=== PATIENT | male | born 1965 | race Caucasian/White ===

== ENCOUNTER → 2019-12-17 09:56 | Outpatient (CLI) | payer BC, SELFPAY ==
[2019-12-17 10:41] LABS: Hemoglobin A1C 5.9 % (0.0-7.0)
[2019-12-17 13:46] LABS: Alanine Aminotransferase 22 U/L (12-78); Albumin Level 3.6 gm/dL (3.4-5.0); Alkaline Phosphatase 78 U/L (46-116); Anion Gap 11.8 mEq/L (5-15); Aspartate Amino Transferase 14 U/L (15-37); Bilirubin,Total 0.4 mg/dL (0.2-1.0); Blood Urea Nitrogen 15 mg/dL (7-18); Carbon Dioxide 29 mmol/L (21.0-32.0); Chloride 101 mmol/L (98-107); Chol/HDL Ratio 4.3 (1-3.5); Cholesterol 142 mg/dL (140-200); Creatinine,Serum 0.89 mg/dL (0.70-1.30); Estimated Glomerular Filt Rate 89 ml/min (>60); GFR (African American) 108 ML/MIN (>60); Globulin 3.6 gm/dl (1.3-3.2); Glucose 84 mg/dL (74-106); HDL Cholesterol 33 mg/dL (27-67); LDL Cholesterol 95 mg/dL (0-130); Potassium 3.8 mmoL/L (3.5-5.1); Sodium 138 mmol/L (136-145); Thyroid Stimulating Hormone 5.12 uIU/ml (0.358-3.740); Total Protein,Serum 7.2 gm/dL (6.4-8.2); Triglycerides 72 mg/dL (30-200); VLDL Cholesterol 14 mg/dL (0-40)
== END ==
PROVIDERS: Visit Provider Family Medicine
DX: R73.01 Impaired fasting glucose (principal); E78.5 Hyperlipidemia, unspecified; R53.83 Other fatigue
CPT/HCPCS: 36415; 80053; 80061; 83036; 84443

== ENCOUNTER → 2020-03-17 15:08 | Outpatient (CLI) | payer BC, SELFPAY ==
[2020-03-18 08:22] LABS: Covid-19 Nasal PCR Sendout Lex NOT DETECTED
== END ==
PROVIDERS: Visit Provider Family Medicine
DX: Z03.818 Encounter for observation for suspected exposure to other biological agents ruled out (principal)
CPT/HCPCS: U0003

== ENCOUNTER → 2020-03-22 15:22 | Outpatient (CLI) | payer BC, SELFPAY ==
--- NOTE | 2020-03-22 15:35 | ECG_ITS ---
APPROVED REPORT Exam: Resting ECG HR:91 bpm ECG Measurements Heart Rate 91 AXES TN 178 P 64 QRSd 94 QRS 96 QT 336 T 50 QTc 413 <Conclusion> Sinus rhythm with premature ventricular beats Rightward axis Borderline ECG Electronically signed by : Michael Elliott, 03/26/2020 17:35:09
== END ==
PROVIDERS: PCP Family Medicine; Visit Provider Family Medicine
DX: R94.31 Abnormal electrocardiogram [ECG] [EKG] (principal)
CPT/HCPCS: 93005

== ENCOUNTER → 2020-03-27 10:42 | Outpatient (CLI) | payer BC, SELFPAY ==
[2020-03-27 13:28] LABS: Adenovirus F 40/41, stool Not Detected (NotDetected); Astrovirus Not Detected (NotDetected); Campylobacter Not Detected (NotDetected); Cryptosporidium Not Detected (NotDetected); Cyclospora Cayetanesis Not Detected (NotDetected); Entamoeba histolytica Not Detected (NotDetected); Enteroaggregative E coli Not Detected (NotDetected); Enteropathogenic E coli Not Detected (NotDetected); Enterotoxigenic E coli Not Detected (NotDetected); Giardia lamblia Not Detected (NotDetected); Norovirus Not Detected (NotDetected); Plesimonas Shigalloides, PCR Not Detected (NotDetected); Rotavirus A Not Detected (NotDetected); Salmonella, PCR Not Detected (NotDetected); Sapovirus Not Detected (NotDetected); Shiga-like toxin E coli Not Detected (NotDetected); Shigella Enterovasive E coli Not Detected (NotDetected); Vibrio Cholerae Not Detected (NotDetected); Vibrio, PCR Not Detected (NotDetected); Yersinia Entercolitica, PCR Not Detected (NotDetected)
[2020-03-27 18:40] LABS: Clostridium Difficile A/B, PCR Detected (NotDetected)
[2020-03-28 08:48] LABS: Covid-19 Nasal PCR Sendout Lex NOT DETECTED
--- NOTE | 2020-03-28 09:29 | PC.NURSE ---
notified pt and Dr. Dial of negative COVID 19 results.
== END ==
PROVIDERS: Visit Provider Family Medicine
DX: R19.7 Diarrhea, unspecified (principal); A04.72 Enterocolitis due to Clostridium difficile, not specified as recurrent; R93.89 Abnormal findings on diagnostic imaging of other specified body structures; J20.9 Acute bronchitis, unspecified; Z03.818 Encounter for observation for suspected exposure to other biological agents ruled out
CPT/HCPCS: 87507; U0003

== ENCOUNTER → 2020-04-21 14:37 | Outpatient (CLI) | payer BC, SELFPAY ==
--- NOTE | 2020-04-21 14:42 | XR_ITS ---
PROCEDURE: XR CHEST 2V CLINICAL HISTORY: ABN CXR Former smoker, follow-up abnormal chest x-ray COMPARISON: XR CHEST PORTABLE from 03/05/2020 FINDINGS: The cardiomediastinal silhouette and pulmonary vascularity are within normal limits. The lungs are clear without infiltrates, suspicious nodules, or pleural effusions. Previously noted nodular opacity in the left upper lobe is less apparent and may have been due to an overlying vessel. Calcified granuloma is present in the right middle lobe with degenerative changes are present in the thoracic spine IMPRESSION: No acute findings. Dictated by: Cassius Goldberg MD 04/21/2020 15:37 Electronically signed by Cassius Goldberg MD in [place] 04/21/2020 15:37
== END ==
PROVIDERS: PCP Family Medicine; Visit Provider Family Medicine
DX: R93.89 Abnormal findings on diagnostic imaging of other specified body structures (principal)
CPT/HCPCS: 71046

== ENCOUNTER → 2021-01-13 10:21 | Outpatient (CLI) | payer BC, SELFPAY ==
--- NOTE | 2021-01-13 10:29 | XR_ITS ---
PROCEDURE: XR CHEST PORTABLE Referring Doctor: Bishop Sherman Patient Age:55Y CLINICAL HISTORY: COVID OUTPATIENT COMPARISON: No exams were available for comparison FINDINGS: AP portable chest-two AP portable chest images submitted today Lungs are well expanded and appear stable, clear with no significant change since March 2020 . . Heart upper normal sized heart with pulmonary vascularity a, a within normal limits. The fernando and mediastinal structures stable in satisfactory. Stable small calcified granuloma right lung base 8.5 mm size. Otherwise lungs are clear wit with no definitive infiltrates,, no suspicious nodules, o nor pleural effusions. But no pneumothorax No acute bony abnormalities. IMPRESSION: No acute findings. Dictated by: Chris Monge MD 01/13/2021 16:06 Chris Monge MD in [place] 01/13/2021 16:06
[2021-01-13 10:46] LABS: Basophils % 0.4 % (0.1-2.0); Eosinophils # 0.4 K/mm3 (0.0-0.4); Eosinophils % 4.9 % (0.1-12.0); Hematocrit 39.7 % (42.0-52.0); Hemoglobin 13.2 g/dL (14.1-18.0); Lymphocytes # 2.8 K/mm3 (0.7-4.5); Lymphocytes % 32.2 % (10-50); Mean Corpuscular HGB Conc 33.2 g/dL (31.8-35.4); Mean Corpuscular Volume 121.1 fl (80-94); Mean Platelet Volume 7.9 fl (7.4-10.4); Monocytes # 0.5 K/mm3 (0.1-1.0); Monocytes % 6.1 % (1.7-9.3); Neutrophils % 56.5 % (37.0-80.0); Platelet Count 317 K/mm3 (142-424); Red Blood Count 3.28 M/mm3 (4.60-6.20); Red Cell Distribution Width 16.7 % (11.5-17.5); White Blood Count 8.8 K/mm3 (4.8-10.8)
[2021-01-13 10:49] LABS: Mean Corpuscular Hemoglobin 40.1 pg (27.0-31.2)
== END ==
PROVIDERS: PCP Family Medicine; Visit Provider Family Medicine
DX: Z20.822 Contact with and (suspected) exposure to COVID-19 (principal)
CPT/HCPCS: 71045; 85025; U0003

== ENCOUNTER 2021-10-09 17:42 | Emergency (ER) | payer OTHER, SELFPAY ==
[2021-10-09 17:42] VITALS: BP 141/90; PULSE 79; RESP 16; TEMP 37; O2SAT 98; BMI 35.1
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
[2021-10-09 20:05] VITALS: BP 141/90; PULSE 79; RESP 16; TEMP 37; O2SAT 98
== END 2021-10-09 20:07 | disposition home or self-care (01) ==
PROVIDERS: Emergency Provider Nurse Practitioner; PCP Family Medicine
DX: T20.10XA Burn of first degree of head, face, and neck, unspecified site, initial encounter (principal); X08.8XXA Exposure to other specified smoke, fire and flames, initial encounter; Y92.69 Other specified industrial and construction area as the place of occurrence of the external cause; Y99.0 Civilian activity done for income or pay
CPT/HCPCS: 99202; G0463

== ENCOUNTER → 2022-01-14 15:09 | Outpatient (CLI) | payer OTHER, SELFPAY ==
[2022-01-14 15:45] LABS: Adenovirus,PCR Not Detected (NotDetected); Bordetella Pertussis Not Detected (NotDetected); Chlamydophila Pneumoniae, PCR Not Detected (NotDetected); Coronavirus 19, PCR Not Detected (NotDetected); Coronavirus 229E Not Detected (NotDetected); Coronavirus NL63 Not Detected (NotDetected); Coronavirus OC43 Not Detected (NotDetected); Coronovirus HKU1,PCR Not Detected (NotDetected); Human Metapneumovirus Not Detected (NotDetected); Influenza A, PCR Not Detected (NotDetected); Influenza AH1, 2009 Not Detected (NotDetected); Influenza AH1, PCR Not Detected (NotDetected); Influenza AH3,PCR Not Detected (NotDetected); Influenza B, PCR Not Detected (NotDetected); Mycoplasma Pneumoniae, PCR Not Detected (NotDetected); Parainfluenza 1, PCR Not Detected (NotDetected); Parainfluenza 2, PCR Not Detected (NotDetected); Parainfluenza 3, PCR Not Detected (NotDetected); Parainfluenza 4, PCR Not Detected (NotDetected); Respiratory Syncytial Virus Not Detected (NotDetected); Rhinovirus/Enterovirus Not Detected (NotDetected)
[2022-01-14 16:09] LABS: Basophils # 0.2 K/mm3 (0-0.2); Basophils % 1.4 % (0.1-2.0); Eosinophils # 0.5 K/mm3 (0.0-0.4); Eosinophils % 4.1 % (0.1-12.0); Hemoglobin 15.5 g/dL (14.1-18.0); Lymphocytes # 2.4 K/mm3 (0.7-4.5); Mean Corpuscular HGB Conc 31.6 g/dL (31.8-35.4); Mean Corpuscular Hemoglobin 31.7 pg (27.0-31.2); Mean Corpuscular Volume 100.3 fl (80-94); Mean Platelet Volume 8.9 fl (7.4-10.4); Monocytes # 0.7 K/mm3 (0.1-1.0); Monocytes % 6.1 % (1.7-9.3); Neutrophils # 8.3 K/mm3 (1.8-7.8); Neutrophils % 68.3 % (37.0-80.0); Platelet Count 319 K/mm3 (142-424); Red Blood Count 4.89 M/mm3 (4.60-6.20); Red Cell Distribution Width 14.1 % (11.5-17.5); White Blood Count 12.1 K/mm3 (4.8-10.8)
== END ==
PROVIDERS: PCP Family Medicine; Visit Provider Family Medicine
DX: Z20.822 Contact with and (suspected) exposure to COVID-19 (principal)
CPT/HCPCS: 36415; 85025; 87581; 87632; 87798; C9803; U0003; U0005

== ENCOUNTER → 2022-01-16 10:52 | Outpatient (CLI) | payer OTHER, SELFPAY ==
[2022-01-16 11:24] LABS: Blood Urea Nitrogen 14 mg/dl (9-20); Estimated Glomerular Filt Rate 88 ml/min (>60); GFR (African American) 106 ML/MIN (>60)
--- NOTE | 2022-01-16 12:58 | CT_ITS ---
FINAL REPORT CLINICAL HISTORY: ABD PAIN, left sided abdomen pain since friday COMPARISON: January 31, 2017 FINDINGS: Technique: The patient was injected with intravenous contrast. Oral contrast was administered. Axial images through the abdomen and pelvis were performed. Abdomen: The lung bases are clear. The liver is normal in size and attenuation. The gallbladder is surgically absent. The spleen is unremarkable. The adrenals are normal. The pancreas is unremarkable. The kidneys enhance appropriately. The aorta is normal in caliber. There is no free fluid or adenopathy. Pelvis: The appendix is not identified. There is descending and sigmoid diverticulosis. There are inflammatory changes adjacent to the distal descending colon consistent with to diverticulitis. The urinary bladder is unremarkable. There is no free fluid or adenopathy. IMPRESSION: Acute diverticulitis of the descending colon. Post cholecystectomy. Reviewed, Interpreted and Dictated by Cheikh Crow III, MD Transcribed by Danni Molina Authenticated by Cheikh Crow III, MD on 01/16/2022 02:36:27 PM [facility]
== END ==
LOC: RAD 10:58
PROVIDERS: PCP Family Medicine; Visit Provider Nurse Practitioner Family
DX: R10.9 Unspecified abdominal pain (principal)
CPT/HCPCS: 36415; 74178; 82565; 84520; Q9967

== ENCOUNTER → 2022-07-02 10:45 | Outpatient (CLI) | payer OTHER, SELFPAY ==
--- NOTE | 2022-07-02 10:59 | XR_ITS ---
FINAL REPORT CLINICAL HISTORY: RIGHT KNEE PAIN FINDINGS: RIGHT KNEE Three views of the right knee reveal no evidence of fracture or dislocation. The bony alignment is normal. There is mild degenerative change. There is no evidence of joint effusion. No localized soft tissue abnormality is identified. IMPRESSION: Mild degenerative change with no acute abnormality identified. Reviewed, Interpreted and Dictated by Cheikh Crow III, MD Transcribed by Danni Molina Authenticated and [facility]
== END ==
PROVIDERS: PCP Family Medicine; Visit Provider Nurse Practitioner Family
DX: M25.561 Pain in right knee (principal)
CPT/HCPCS: 73562

== ENCOUNTER → 2022-07-09 07:55 | Outpatient (CLI) | payer OTHER, SELFPAY ==
--- NOTE | 2022-07-09 07:57 | MR_ITS ---
FINAL REPORT CLINICAL HISTORY: KNEE PAIN. twisted knee 1 week ago. medial sided knee pain. swelling in knee. FINDINGS: Multiplanar MR imaging of the right knee was performed without contrast. There is medial meniscal degeneration with a tear of the body. The lateral meniscus is intact. The anterior and posterior cruciate ligaments are intact. The medial collateral ligament and lateral ligamentous complex are intact. There are foci of patellar tendinitis. There is a small intrasubstance tear of the distal quadriceps tendon. There is no evidence of fracture. There is mild medial compartment degenerative change with mild chondromalacia. Small joint effusion is seen. The musculature is intact. No soft tissue mass or cyst is identified. IMPRESSION: Tear of the body of the medial meniscus. Small intrasubstance tear of the distal quadriceps tendon. Degenerative change and chondromalacia. Reviewed, Interpreted and Dictated by Cheikh Crow III, MD Transcribed by Marylin Sarah Authenticated and [facility]
== END ==
PROVIDERS: PCP Family Medicine; Visit Provider Nurse Practitioner Family
DX: M25.561 Pain in right knee (principal)
CPT/HCPCS: 73721

== ENCOUNTER 2022-09-03 09:00 | Outpatient (RCR) | payer OTHER, SELFPAY ==
--- NOTE | 2022-07-30 09:42 | HMH.PTOPEV ---
PT Outpatient Evaluation Rehab PT Outpatient Evaluation Start: 07/30/22 09:09 Freq: Status: Active Protocol: Document 07/30/22 09:09 CARRILLO (Rec: 07/30/22 09:21 CARRILLO [id number]) E-signed By Chintan Handy, PT Outpatient Therapy Subjective History Subjective History Pt reports injury to right knee ~1 month ago, caused by stepping into hole then twisting right knee. Pt reports recent MRI has revealed a mensicus tear in the right knee. Pt reports severe right knee pain since injury, as well as swelling, and weakness. Pt also reports right anterior thigh pain from hip to knee (quad strain). Chief Complaint Pain,Stiff,Swelling Symptom Type Ache,Sharp,Dull Symptoms Relieved By Rest/Positioning,Ice, Prescription Meds Symptoms Aggravated By Standing,Physical Activity, Walking Prior Functional Limitations None Current Functional Limitations Housework,Standing,Squatting, Walking,Stairs Symptom Description Constant but Variable Level of pain today (0-10) 6 Pain scale - at its best (0-10) 6 Pain scale - at its worst (0-10) 9 Hip/Knee Eval Gait Observation General Gait Pattern Observation Antalgic Gait,Wide Based Gait Assistive Device Assistive Devices None / NA Palpation Tenderness right Knee Palpation Finding Tenderness Knee Palpation Overall Comment 3/4 medial jt line, medial popiteal, 1/4 lateral jt line, 3/4 rectus femori MMT Hip Flexion Strength Grade 4- Good- Hip Abduction Strength Grade 4- Good- Hip Adduction Strength Grade 4- Good- Hip Extension Strength Grade 4- Good- Hip External Rotation Strength Grade 4 Good Hip Internal Rotation Strength Grade 4- Good- Knee Extension Strength Grade 4- Good- Knee Flexion Strength Grade 4- Good- ROM Knee Flexion Active Range of Motion ( 5-124 degrees) Effusion joint effusion knee exam standard right Mid - Patellar Circumerential Measure ( 42 cm) Special Tests Knee Valgus Stress Test Positive Right Knee Varus Stress Test Negative Right Knee Dagoberto Test Positive Right Outpatient Therapy Assessment Impairments Problems/Impairmments Palpation Tenderness,Impaired Range of Motion,Impaired
--- NOTE | 2022-08-29 08:26 | HMH.RHREAS ---
Rehab Reassessment Rehab OP Re-assessment Start: 08/29/22 08:05 Freq: Status: Active Protocol: Document 08/29/22 08:08 CARIRLLO (Rec: 08/29/22 08:25 CARRILLO [id number]) E-signed By Chintan Handy, PT Rehab Re-assessment Subjective Subjective Pt reports right knee exacerbation over the last ~4- 5days w/increased anterior and medial aspect right knee pain @5-8/10 depending on activity . Objective Objective Notes AROM: RIGHT KNEE 3-125 W/PAIN AT END ROM MMT: R HIP ER 4-/5 D/T PAIN, R QUAD 4-/5 D/T PAIN, R HIP ADD 4-/5 W/PAIN TTP: R QUAD TENDON 2-3/4, R MEDIAL (KNEE) JT LINE 3/4 GAIT: ANTALGIC W/DECREASED WT. BEARING ON R LE Assessment Progress Assessment Slower Than Expected Assessment Notes DEPSITE COMPLIANCE W/SKILLED P .T. PT UNABLE TO MAKE PROGRESS W/OBJECTIVE MEASURES Patient goals met STG'S 03/09 Goals Not Met STG'S 04/08, LTG'S 11/11 Plan Plan Pt to continue w/skilled P.T. to make further improvements in AROM, STRENGTH, AND TTP to allow for optimal function Frequency of Therapy 1-2x/wk Duration of therapy 3-4wks Time and Billing Re-Eval Time 12 Re-Eval Billing Units 1 PHYSICIAN CERTIFICATION: I certify the specified therapy services for Cassius Leo are required, authorized, and reviewed every 30 days.
== END 2022-09-03 09:05 | disposition home or self-care (01) ==
LOC: PT 09:00
PROVIDERS: Visit Provider Orthopaedic Surgery
DX: M25.561 Pain in right knee (principal)
CPT/HCPCS: 97010; 97014; 97016; 97035; 97110; 97140; 97163; 97164; G0283

== ENCOUNTER → 2022-09-05 10:59 | Outpatient (CLI) | payer OTHER, SELFPAY ==
[2022-09-05 11:04] LABS: Microscopic, Urine URINE MICROSCOPIC (MICROSCOPIC)
[2022-09-05 11:46] LABS: Basophils # 0.1 K/mm3 (0-0.2); Basophils % 1.5 % (0.1-2.0); Eosinophils # 0.3 K/mm3 (0.0-0.4); Eosinophils % 2.8 % (0.1-12.0); Hematocrit 47.9 % (42.0-52.0); Hemoglobin 15.5 g/dL (14.1-18.0); Lymphocytes # 2.5 K/mm3 (0.7-4.5); Lymphocytes % 27.9 % (10-50); Mean Corpuscular HGB Conc 32.4 g/dL (31.8-35.4); Mean Corpuscular Hemoglobin 30.1 pg (27.0-31.2); Mean Corpuscular Volume 92.9 fl (80-94); Mean Platelet Volume 8.6 fl (7.4-10.4); Monocytes # 0.6 K/mm3 (0.1-1.0); Monocytes % 6.3 % (1.7-9.3); Neutrophils # 5.5 K/mm3 (1.8-7.8); Neutrophils % 61.6 % (37.0-80.0); Platelet Count 318 K/mm3 (142-424); Red Blood Count 5.16 M/mm3 (4.60-6.20); Red Cell Distribution Width 13.8 % (11.5-17.5)
[2022-09-05 11:48] LABS: Appearance,Urine CLEAR (Clear); Bilirubin,Urine Negative (Negative); Blood, Urine Negative (Negative); Color,Urine YELLOW (Yellow); Glucose,Urine (UA) Negative (Negative); Ketones,Urine Negative (Negative); Leukocyte Esterase,Urine Negative (Negative); Nitrate,Urine Negative (Negative); Protein,Urine Negative (Negative); Specific Gravity, Urine 1.025 (1.005-1.030)
[2022-09-05 12:01] LABS: Chloride 103 mmol/L (98-107); Sodium 142 mmol/L (136-145)
[2022-09-05 12:02] LABS: Potassium 4.9 mmoL/L (3.5-5.1)
[2022-09-05 12:04] LABS: Alanine Aminotransferase 19 U/L (12-78); Albumin Level 4.4 g/dl (3.5-5.0); Albumin/Globulin Ratio 1.3 (1.1-1.8); Alkaline Phosphatase 118 U/L (38-126); Anion Gap 11.9 mEq/L (5-15); Aspartate Amino Transferase 30 U/L (17-59); Bilirubin,Total 0.4 mg/dl (0.2-1.3); Blood Urea Nitrogen 12 mg/dl (9-20); Calcium 9.4 mg/dl (8.4-10.2); Carbon Dioxide 32 mmol/L (22.0-30.0); Estimated Glomerular Filt Rate 100 ml/min (>60); GFR (African American) 121 ML/MIN (>60); Globulin 3.3 g/dL (1.3-3.2); Glucose 102 mg/dl (74-100); Total Protein,Serum 7.7 g/dl (6.3-8.2)
[2022-09-05 12:12] LABS: Mucus,Urine Trace /lpf; Squamous Epithelial Cell,Urine Occasional #/hpf (0-5); WBC,Urine Occasional #/hpf (0-3)
== END ==
PROVIDERS: PCP Family Medicine; Visit Provider Orthopaedic Surgery
DX: Z01.818 Encounter for other preprocedural examination (principal); S83.241A Other tear of medial meniscus, current injury, right knee, initial encounter
CPT/HCPCS: 36415; 80053; 81001; 85025

== ENCOUNTER → 2022-09-07 09:06 | Outpatient (CLI) | payer OTHER, SELFPAY | PROVIDERS: PCP Family Medicine; Visit Provider Orthopaedic Surgery | DX: Z01.812 Encounter for preprocedural laboratory examination (principal); Z20.822 Contact with and (suspected) exposure to COVID-19; M25.561 Pain in right knee | CPT/HCPCS: C9803; U0003; U0005 ==

== ENCOUNTER 2022-09-10 10:33 | Day surgery (SDC) | payer OTHER, SELFPAY ==
[2022-09-09 09:40] VITALS: BMI 32.9
[2022-09-10] VITALS (12 sets, daily range): BP systolic 123–155; BP diastolic 66–97; PULSE 57–71; RESP 16–17; TEMP 36.1–43; O2SAT 93–100
--- NOTE | 2022-09-10 12:15 | EXP.ANES.CKL ---
[facility] Medical History (Updated 09/10/22 @ 11:17 by Estela Lemons RN) Hypertension Surgical History History of cholecystectomy History of surgery History of surgery History of surgery Family History Other No significant family history Social History Smoking Status: Current every day smoker alcohol intake: never substance use type: denies use current occupational status: employed Travel in the last 8 weeks: None [facility] Anesthesia Checklist Patient Identification Patient Identification: Arm Band Structural Data Admitted From: Home Planned Operative Procedure/s: Right Knee Arthroscopy, Medial Meniscectomy Consent for Planned Operative Procedure(s) Verified: Yes Verified Documents: Surgical Consent and History and Physical NPO Status Verified Time NPO: 00:00 Additional verifications Anesthesia Reactions: No Hx Blood Transfusions: No Blood Transfusion Reaction: No Airway Assessment C-Spine Mobility Assessed: Yes TMJ Mobility Assessed: Yes Dentition: Edentulous Neurological Assessment Level of Consciousness: Awake and Alert Anesthesia Plan Anesthesia Risk discussed: Yes Anesthesia Plan: Verified ASA Class: II Anesthesia Type: General
--- NOTE | 2022-09-10 12:49 | EXP.OP.NOTE ---
Date of procedure: 09/10/22 Pre-op Diagnosis:: Right knee medial meniscus tear Post-op Diagnosis:: Right knee medial meniscus tear Procedure performed:: Right knee arthroscopy with partial medial meniscectomy Surgeon:: Jay Griffith MD Health Education Director(s):: None CONSTRUCTION SUPERINTENDENT:: Baltazar Hart Anesthesia: GETA and local Estimated blood loss (mL): 5 Clinical Note:: Vito is a very pleasant 57-year-old male has been struggling with right knee pain since he slipped in May. An MRI in July revealed complex tear undersurface of the medial meniscus at the junction of the posterior horn and body. A cortisone injection in August only helped for a few days. He did physical therapy as well with minimal relief. 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 Operative findings:: Right knee complex tear with horizontal cleavage component junction of posterior horn and body the medial meniscus. 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 Operative note:: The patient was seen in the preoperative holding area. He received Ancef 2 g IV prophylactic antibiotics within 1 hour of incision time. He was seen by anesthesia. The right knee was marked to confirm the correct operative site. He was brought back to the operating room. General anesthesia was induced without difficulty. The right lower extremity was prepped and draped in the usual sterile fashion. Timeout was performed to confirm right knee arthroscopy on patient Vito Leo. An anterior lateral viewing portal was made with an 11 blade scalpel. Arthroscope was introduced in the knee joint. I then made an anteromedial portal localizing this with a spinal needle and making this incision with an 11 blade as well. This was dilated with a trocar and diagnostic arthroscopy commenced. Evaluation of the medial compartment revealed a complex tear with horizontal cleavage component junction of posterior horn and body of the medial meniscus. There was mild to grade II-III chondromalacia of the medial femoral condyle with no full-thickness cartilage loss. This was debrided with a shaver. A partial medial meniscectomy was then performed using a combination of a 4.0 mm shaver and a straight biter to resect the tear at the junction of the posterior horn and body the medial meniscus. We resected the unstable inferior flap of the horizontal cleavage component tear of the posterior horn as well. We resected approximately inner third to half at the apex of the tear at the junction of the posterior horn and body of the middle meniscus. This was resected back to a smooth stable border with smooth transition to intact body of the medial meniscus. Cruciate ligaments were seen to be intact. Evaluation of the lateral compartment revealed lateral meniscus was intact and minimal chondromalacia. Evaluation of the patellofemoral compartment revealed some diffuse grade II-III chondromalacia of the central aspect of the trochlea. This was debrided with the shaver back to a smooth stable border. Arthroscopy instruments were removed from the the joint. Portals were closed with 4-0 Monocryl subcuticular stitches. I injected 20 cc of half percent Naropin from the superolateral approach for local anesthetic. Sterile dressing was applied with Steri-Strips, 4 x 4's, ABDs, soft roll and an Klaus bandage. Anesthesia was reversed without difficulty and the patient was transferred to recovery in stable condition. All sponge and needle counts correct x2. Postoperative plan: We will prescribe oxycodone to take as needed for pain and aspirin for DVT prophylaxis Okay to weight-bear as tolerated with crutch assist as needed. Ice and elevate the right knee Follow-up in the office next Friday Tourniquet time (min): 0 Condition: stable Disposition: PACU Specimens:: None Complications:: None
--- NOTE | 2022-09-10 12:51 | P.PNANES_ITS ---
[facility] Anesthesia Record Part I Anesthesia Record I Intake, IV Amount: 900 Estimated blood loss (mL): 5 Urine output (mL): 0 Blood Products used (#): none Blood Pressure: 127/66 SaO2: 93 Pulse Rate: 57 Respiratory Rate: 16 Temperature: 97.8 F Patient is:: Drowsy and Stable Stable to PACU at:: 12:50
--- NOTE | 2022-09-10 13:35 | EXP.ANES.II ---
[facility] Anesthesia Record Part II Anesthesia Record Part II Discharge Time: 13:20 Destination: Surgical Day Care (OP Surgery) PACU nurse assessment reviewed?: Yes Patient Condition:: Good Anesthesia Complications:: None Swallowing reflex intact?: Yes Cyanosis?: No Blood Pressure: 142/84 Pulse Rate: 67 Temperature: 97.6 F Mental Status: Alert & Oriented Pain level:: 3 Nausea and/or vomitting:: None Intake, IV Amount: 0
== END 2022-09-10 13:56 | disposition home or self-care (01) ==
PROVIDERS: PCP Family Medicine; Visit Provider Orthopaedic Surgery
PROC: (CPT 29870; principal; 2022-09-10 12:15)
DX: S83.241A Other tear of medial meniscus, current injury, right knee, initial encounter (principal); F17.210 Nicotine dependence, cigarettes, uncomplicated; M17.11 Unilateral primary osteoarthritis, right knee; W11.XXXA Fall on and from ladder, initial encounter; M94.261 Chondromalacia, right knee
CPT/HCPCS: 29881; 29879; 96374; J2405

== ENCOUNTER 2022-11-12 08:00 | Outpatient (RCR) | payer OTHER, SELFPAY ==
--- NOTE | 2022-10-01 08:56 | HMH.PTOPEV ---
PT Outpatient Evaluation Rehab PT Outpatient Evaluation Start: 10/01/22 08:32 Freq: Status: Active Protocol: Document 10/01/22 08:35 ANIVAL (Rec: 10/01/22 08:55 ANIVAL [id number]) E-signed By Adal Hopkins, PT Outpatient Therapy Subjective History Subjective History Patient is a 57 year old male presenting to outpatient PT with reports of R post-sugical knee pain S/P R knee arthroscopy 09/10/22. Patient reports initial injury occurred after a misstep off a ladder approximatley 2 months ago. Most recent imaging indicates tear of the medial meniscus, small tear of the quad tendon and chondromalacia . Comorbidities include hx of HTN, Meiners disease, sheng and distal biceps ORIF. Chief Complaint Pain,Stiff,Swelling,Weakness Symptom Type Ache,Sharp Symptoms Relieved By Rest/Positioning,Ice,OTC Meds Symptoms Aggravated By Standing,Physical Activity, Walking Prior Functional Limitations None Current Functional Limitations Housework,Standing,Squatting, Walking,Balance Symptom Description Constant but Variable Level of pain today (0-10) 4 Pain scale - at its best (0-10) 1 Pain scale - at its worst (0-10) 9 Hip/Knee Eval Gait Observation General Gait Pattern Observation Antalgic Gait,Decrease Weight Bear (R) Assistive Device Assistive Devices None / NA Palpation Tenderness right Knee Palpation Finding Tenderness Knee Palpation Overall Comment medial joint line, pes anserene, quad tendon 3/4 MMT Hip Flexion Strength Grade 4- Good- Hip Abduction Strength Grade 4- Good- Hip Adduction Strength Grade 4- Good- Hip Extension Strength Grade 4- Good- Hip External Rotation Strength Grade 4- Good- Hip Internal Rotation Strength Grade 4- Good- Knee Extension Strength Grade 3+ Fair+ Knee Flexion Strength Grade 4 Good ROM Hip ROM Reason Not Measured Within Functional Limits Knee Extension Active Range of Motion ( -5 degrees) Knee Flexion Active Range of Motion ( 124 degrees) Special Tests Knee Anterior Lincoln Test Negative Right Knee Pivot Shift Test Negative Right Knee Valgus Stress Test Negative Right Knee Varus Stress Test Negative Right Kne
--- NOTE | 2022-10-30 08:28 | HMH.RHREAS ---
Rehab Reassessment Rehab OP Re-assessment Start: 10/30/22 08:09 Freq: Status: Active Protocol: Document 10/30/22 08:09 ANIVAL (Rec: 10/30/22 08:27 ANIVAL [id number]) E-signed By Adal Hopkins, PT Rehab Re-assessment Subjective Subjective Patient reports 65% improvement since start of care. Objective Objective Notes AROM: 0-126 MMT: all WNL except for quad 4 -/5, hip ER/IR 4-/5 Pain: today 02/07; at worst over past week 05/10 Neuro: WNL Special tests: negative Assessment Progress Assessment Progressing as Expected Assessment Notes Patient would benefit from continuing with skilled PT services to address functional deficits with all standing/ ambulatory activities. At this this time the main concern is weakness in above mentioned muscle groups associated with pain. Patient has more difficulty with exercises including medial/lateral stability. Patient goals met STG2 Goals Not Met All others Revised Goals NA Plan Plan Continue with current POC. Frequency of Therapy 2x/week Duration of therapy 4 weeks Time and Billing Re-Eval Time 15 Re-Eval Billing Units 1 PHYSICIAN CERTIFICATION: I certify the specified therapy services for Cassius Leo are required, authorized, and reviewed every 30 days.
== END 2022-11-12 08:05 | disposition home or self-care (01) ==
LOC: PT 08:00
PROVIDERS: Visit Provider Orthopaedic Surgery
DX: M25.561 Pain in right knee (principal); S83.241A Other tear of medial meniscus, current injury, right knee, initial encounter
CPT/HCPCS: 97010; 97014; 97016; 97110; 97163; 97164; G0283

== ENCOUNTER → 2023-03-10 15:49 | Outpatient (CLI) | payer OTHER, SELFPAY ==
--- NOTE | 2023-03-10 15:58 | XR_ITS ---
FINAL REPORT CLINICAL HISTORY: Rt flank pain for 2-3 weeks, hx of gallbladder surg 9+ years ago FINDINGS: A single view of the abdomen was obtained. There is a nonobstructive bowel gas pattern. There are no abnormally dilated loops of small bowel. There is a moderate amount of retained stool. There are postoperative changes in the right upper quadrant. IMPRESSION: 1. Nonobstructive bowel gas pattern. 2. Moderate amount of retained stool. Reviewed, Interpreted and Dictated by Cheikh Crow III, MD Transcribed by Danni Molina Authenticated and [facility]
== END ==
PROVIDERS: PCP Family Medicine; Visit Provider Family Medicine
DX: R10.9 Unspecified abdominal pain (principal)
CPT/HCPCS: 74018

== ENCOUNTER 2023-04-20 18:01 | Emergency (ER) | payer SELFPAY ==
[2023-04-20 18:02] VITALS: BP 160/96; PULSE 66; RESP 18; TEMP 36.7; O2SAT 98; BMI 34.0
--- NOTE | 2023-04-20 18:14 | XR_ITS ---
PROCEDURE INFORMATION: Exam: XR Right Knee Exam date and time: 04/20/23 06:11 PM Age: 57 years old Clinical indication: Pain; Knee; Right TECHNIQUE: Imaging protocol: Radiologic exam of the right knee. Views: 3 views. COMPARISON: MR KNEE RT WO CON 07/09/22 08:04 AM FINDINGS: Bones/joints: Normal. Soft tissues: Normal. IMPRESSION: No acute findings.
--- NOTE | 2023-04-20 18:19 | EXP.UTC ---
Discharge Plan Disposition Patient Disposition: Home, Self-Care Condition: Good Prescriptions Prescriptions: No Action meloxicam 15 mg tablet 15 mg PO DAILY Qty: 30 2RF losartan 50 MG tablet 50 mg PO DAILY aspirin 325 mg tablet 325 mg PO DAILY Qty: 14 0RF Rx Instructions: Take w breakfast for 2 weeks starting 09/11 Referrals Follow up/Referrals: Bishop Sherman MD [Primary Care Provider] - See instructions Vadim Walker JR, MD [Physician] - See instructions Activity Restrictions/Add. Instructions Additional Instructions/Restrictions: Rest the extremity, Elevate the extremity as tolerated while you are resting. Follow up with Dr. Walker (orthopedics). I put in a referral but you need to call his office in the morning and schedule an appointment. Follow up with your regular doctor. GO TO THE ER FOR ANY WORSENING SYMPTOMS Clinical Impressions Clinical Impression: Knee pain, right Stand Alone Forms Stand Alone Forms: Work/School Release Instructions Patient Instructions: DI for Knee Pain Discharge ED Provider: Johnny [place] [facility] General Stated complaint: AO 04/20@1715 R knee Time Seen by Provider: 04/20/23 18:19 History of Present Illness Provider Complaint: She c/o worsening right knee pain for the past 3 weeks. Today, he slightly twisted his right knee and his symptoms worsened. Related Data Home Medications Medication Instructions Recorded Confirmed losartan 50 mg tablet 50 mg PO DAILY bp 09/09/22 11/15/22 Previous Rx's Medication Instructions Recorded aspirin 325 mg tablet 325 mg PO DAILY #14 tabs 09/10/22 meloxicam 15 mg tablet 15 mg PO DAILY #30 tabs 10/18/22 Allergies Allergy/AdvReac Type Severity Reaction Status Date / Time morphine [MORPHINE] Allergy Mild DROPS B/P Verified 11/15/22 11:03 [facility] Disclaimer: The information contained in this section may have been updated after the patient was seen, as this information can be updated by other users. Medical History Hypertension Surgical History History of arthroscopy of right knee History of cholecystectomy History of surgery History of surgery History of surgery Family History Other No significant family history Social History Smoking Status: Current every day smoker alcohol intake: never substance use type: denies use current occupational status: employed Travel in the last 8 weeks: None ROS Obtained: Yes All systems reviewed & no additional complaints except as documented Constitutional Constitutional: Denies chills and Denies fever(s) Eyes Eyes: Denies eye discharge ENT Ears, Nose, Mouth, and Throat: Denies dizziness, Denies otalgia and Denies sore throat Cardiovascular Cardiovascular: Denies chest pain Respiratory Respiratory: Denies shortness of breath, Denies chest congestion, Denies cough, Denies stridor and Denies wheezing Gastrointestinal Gastrointestingal: Denies nausea or vomiting Musculoskeletal Musculoskeletal: Reports as per HPI Integumentary/Breasts Skin/Breast: Denies rash Neurologic Neurologic: Denies dizziness and Denies paresthesias Allergic/Immunologic Allergic/Immunologic: Denies wheezing Physical Exam General General appearance: alert and in no apparent distress Head Head exam: atraumatic, normocephalic and normal inspection Eye Eye exam: Present normal appearance, PERRL and EOMI ENT ENT exam: Present normal exam, normal oropharynx, mucous membranes moist, TM's normal bilaterally and normal external ear exam Neck Neck exam: Present normal inspection, full ROM and trachea midline; Absent meningismus or lymphadenopathy Chest Chest inspection: Present normal inspection and symmetric chest wall rise; Absent tenderness Respira
[2023-04-20 19:48] VITALS: BP 160/96; PULSE 66; RESP 18; TEMP 36.7; O2SAT 98
== END 2023-04-20 19:48 | disposition home or self-care (01) ==
PROVIDERS: Emergency Provider Nurse Practitioner Family; PCP Family Medicine
DX: M25.561 Pain in right knee (principal); I10 Essential (primary) hypertension; F17.210 Nicotine dependence, cigarettes, uncomplicated; X50.1XXA Overexertion from prolonged static or awkward postures, initial encounter
CPT/HCPCS: 73562; 96372; 99212; 99214; G0463

== ENCOUNTER → 2023-05-12 07:39 | Outpatient (CLI) | payer BC, SELFPAY ==
--- NOTE | 2023-05-12 07:42 | MR_ITS ---
FINAL REPORT CLINICAL HISTORY: DERANGMENT OF KNEE, RIGHT. medial sided knee pain with swelling. knee instability. no injury or trauma COMPARISON: 07/09/2022 FINDINGS: Multiplanar MR imaging of the right knee was performed without contrast. Interval postoperative changes of partial medial meniscectomy. No convincing medial meniscal tear. Lateral meniscus intact. The anterior and posterior cruciate ligaments are intact. The medial collateral ligament and lateral ligamentous complex are intact. There are foci of patellar tendinitis. No tendon tear seen. There is no evidence of fracture. 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 A small joint effusion is seen. The musculature is intact. No soft tissue mass or cyst is identified. IMPRESSION: Interval postoperative changes of partial medial meniscectomy without convincing medial meniscal tear. Patellar tendinitis. 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 Reviewed, Interpreted and Dictated by Cheikh Crow III, MD Transcribed by Ila Roque Authenticated and [facility]
== END ==
PROVIDERS: PCP Family Medicine; Visit Provider Family Medicine
DX: M23.91 Unspecified internal derangement of right knee (principal)
CPT/HCPCS: 73721

== ENCOUNTER 2023-08-03 09:26 | Emergency (ER) | payer BC, SELFPAY ==
[2023-08-03 09:35] VITALS: BP 143/91; PULSE 74; RESP 20; TEMP 36.8; O2SAT 96; BMI 34.0
--- NOTE | 2023-08-03 09:43 | EXP.UTC ---
Discharge Plan Disposition Patient Disposition: Home, Self-Care Condition: Good Prescriptions Prescriptions: New doxycycline monohydrate 100 mg tablet 100 mg PO BID Qty: 20 0RF prednisone 20 mg tablet 20 mg PO BID Qty: 10 0RF dextromethorphan-guaifenesin [Mucinex DM] 60-1,200 mg tablet extended release 12 hr 1 tab PO BID Qty: 20 0RF No Action meloxicam 15 mg tablet 15 mg PO DAILY Qty: 30 2RF indomethacin 25 mg capsule 25 mg PO Patient Comments: TAKE 1 CAPSULE BY MOUTH THREE TIMES DAILY losartan 50 MG tablet 50 mg PO DAILY aspirin 325 mg tablet 325 mg PO DAILY Qty: 14 0RF Rx Instructions: Take w breakfast for 2 weeks starting 09/11 Referrals Follow up/Referrals: Tavo Dial MD [Primary Care Provider] - See instructions Activity Restrictions/Add. Instructions Additional Instructions/Restrictions: Take all meds as prescribed until gone Follow up with Dr Dial if not improving Clinical Impressions Clinical Impression: Chronic bronchitis with acute exacerbation Instructions Patient Instructions: DI for Chronic Obstructive Pulmonary Disease Discharge ED Provider: Kristine Dominguez [facility] [place] HPI General Stated complaint: congestion Time Seen by Provider: 08/03/23 09:44 History of Present Illness Provider Complaint: Cough and congestion X 5 days. Cough productive of green sputum. He does smoke. Does not use inhalers at home. Had fever the first 3 days. No nausea, vomiting. Took some Robitussin which helped just a little. Onset (ago): day(s) (5) Location: chest Relieving factors: none Exacerbating factors: none Associated symptoms: cough Treatments prior to arrival: other (Robitussin) Related Data Home Medications Medication Instructions Recorded Confirmed losartan 50 mg tablet 50 mg PO DAILY bp 09/09/22 05/16/23 indomethacin 25 mg capsule 25 mg PO 05/07/23 05/16/23 Previous Rx's Medication Instructions Recorded aspirin 325 mg tablet 325 mg PO DAILY #14 tabs 09/10/22 meloxicam 15 mg tablet 15 mg PO DAILY #30 tabs 10/18/22 dextromethorphan-guaifenesin ER 60 1 tab PO BID #20 tabs 08/03/23 mg-1,200 mg tab,extend release,12hr (Mucinex DM) doxycycline monohydrate 100 mg 100 mg PO BID #20 tabs 08/03/23 tablet prednisone 20 mg tablet 20 mg PO BID #10 tabs 08/03/23 Allergies Allergy/AdvReac Type Severity Reaction Status Date / Time morphine [MORPHINE] Allergy Mild DROPS B/P Verified 05/16/23 14:22 [facility] Disclaimer: The information contained in this section may have been updated after the patient was seen, as this information can be updated by other users. Medical History Hypertension Surgical History History of arthroscopy of right knee History of cholecystectomy History of surgery left bicep repair History of surgery pressure released from right ear History of surgery left thumb reparied Family History Other No significant family history Social History Smoking Status: Current every day smoker alcohol intake: never substance use type: denies use current occupational status: employed Travel in the last 8 weeks: None ROS Obtained: Yes All systems reviewed & no additional complaints except as documented Constitutional Constitutional: Denies chills and Denies fever(s) Eyes Eyes: Denies eye discharge ENT Ears, Nose, Mouth, and Throat: Denies dizziness, Denies otalgia and Denies sore throat Cardiovascular Cardiovascular: Denies chest pain Respiratory Respiratory: Denies shortness of breath, Reports chest congestion, Reports cough, Denies stridor and Denies wheezing Gastrointestinal Gastrointestingal: Denies nausea or vomiting Musculoskeletal Musculoskeletal: Reports as
[2023-08-03 09:59] VITALS: BP 143/91; PULSE 74; RESP 20; TEMP 36.8; O2SAT 96
== END 2023-08-03 10:03 | disposition home or self-care (01) ==
PROVIDERS: Emergency Provider Physician Assistant; PCP Family Medicine
DX: J20.9 Acute bronchitis, unspecified (principal); F17.210 Nicotine dependence, cigarettes, uncomplicated; I10 Essential (primary) hypertension
CPT/HCPCS: 99212; 99214; G0463

== ENCOUNTER 2023-08-10 14:11 | Emergency (ER) | payer BC, SELFPAY ==
[2023-08-10] VITALS (8 sets, daily range): BP systolic 125–170; BP diastolic 66–94; PULSE 61–71; RESP 16–19; TEMP 36.5; O2SAT 95–100; BMI 34.0
--- NOTE | 2023-08-10 14:30 | XR_ITS ---
PROCEDURE INFORMATION: Exam: XR Chest Exam date and time: 08/10/2023 2:26 PM Age: 58 years old Clinical indication: Cough TECHNIQUE: Imaging protocol: Radiologic exam of the chest. Views: 2 views. COMPARISON: CR XR CHEST PORTABLE 01/13/2021 10:51 AM FINDINGS: Lungs: Stable interstitial prominence. No focal consolidation. Stable calcified granuloma at the right base. Pleural spaces: Unremarkable. No pleural effusion. No pneumothorax. Heart/Mediastinum: Unremarkable. No cardiomegaly. Bones/joints: Unremarkable. IMPRESSION: No acute findings.
[2023-08-10 14:33] LABS: Coronavirus 19, PCR Not Detected (NotDetected); Influenza A, PCR Not Detected (NotDetected); Influenza B, PCR Not Detected (NotDetected)
--- NOTE | 2023-08-10 14:34 | PC.NURSE ---
PT GOING TO RADIOLOGY
--- NOTE | 2023-08-10 14:38 | PC.NURSE ---
Pt returned from RAD
--- NOTE | 2023-08-10 14:39 | PC.NURSE ---
pt back in room from xray
--- NOTE | 2023-08-10 14:47 | ECG_ITS ---
APPROVED REPORT Exam: Resting ECG HR:66 bpm ECG Measurements Heart Rate 66 AXES WI 194 P 25 QRSd 115 QRS 71 QT 394 T 42 QTc 408 Conclusion ELECTRONIC VENTRICULAR PACEMAKER ABNORMAL RHYTHM ECG UNCONFIRMED REPORT Electronically signed by : Javier Werner MD 08/12/2023 17:18:57
--- NOTE | 2023-08-10 14:49 | PC.NURSE ---
Upon rounding on pt pt was clutching thre right side of his chest and advised his chest feels tight . MD made aware and EKG done
--- NOTE | 2023-08-10 15:43 | PC.NURSE ---
Rounded on patient. No needs at this time.
--- NOTE | 2023-08-10 15:51 | HMH.EDGENADL ---
Discharge Plan Disposition Patient Disposition: Home, Self-Care Prescriptions Prescriptions: New albuterol sulfate 90 mcg/actuation HFA aerosol inhaler 2 inh inhalation Q4H PRN (Reason: shortness of breath or wheezing) Qty: 8.5 0RF fluticasone propionate 220 mcg/actuation HFA aerosol inhaler 1 inh inhalation BID Qty: 12 0RF No Action meloxicam 15 mg tablet 15 mg PO DAILY Qty: 30 2RF indomethacin 25 mg capsule 25 mg PO Patient Comments: TAKE 1 CAPSULE BY MOUTH THREE TIMES DAILY losartan 50 MG tablet 50 mg PO DAILY aspirin 325 mg tablet 325 mg PO DAILY Qty: 14 0RF Rx Instructions: Take w breakfast for 2 weeks starting / doxycycline monohydrate 100 mg tablet 100 mg PO BID Qty: 20 0RF prednisone 20 mg tablet 20 mg PO BID Qty: 10 0RF dextromethorphan-guaifenesin [Mucinex DM] 60-1,200 mg tablet extended release 12 hr 1 tab PO BID Qty: 20 0RF Referrals Follow up/Referrals: Elie Paredes MD [Primary Care Provider] - See instructions Activity Restrictions/Add. Instructions Additional Instructions/Restrictions: Call your family doctor to establish care for this visit to the emergency department and schedule follow-up within 48 hours to ensure improvement. If you have any worsening of your condition or any other concerning signs or symptoms, return to the emergency department or your primary care doctor for further evaluation. Clinical Impressions Clinical Impression: Bronchitis Discharge ED Provider: Bebeto Limon General Adult HPI General Chief complaint: Upper Respiratory Infection Stated complaint: chills,Sore throat,SOB,Congestion Cizzy Time Seen by Provider: 08/10/23 15:00 Mode of Arrival: Ambulatory Source of Information: Patient Limitations: No Limitations Description of Symptoms (Recalled from ER Triage Doc. by RN): pt was seen last week at [facility] here for congestion adn given antibiotics and steroids. today he states he is worse and has a sore throat and denies a fever but has a productive cough and feels like he has chest congesetion now. History of Present Illness HPI narrative: 58-year-old male with history of COPD currently still smoking, hypertension, hyperlipidemia presenting with shortness of breath. Patient has had shortness of breath and cough for approximately 10 days. Had a fever over a week and a half ago, has not had a fever in about 7 days. Cough is nonproductive. Shortness of breath has not been relieved. Chest pain, nausea vomiting, lower extremity swelling, positional changes, abdominal pain, productive cough, or any other concerns. No history or risk factors for DVT/PE. Related Data Home Medications Medication Instructions Recorded Confirmed losartan 50 mg tablet 50 mg PO DAILY bp 09/09/22 05/16/23 indomethacin 25 mg capsule 25 mg PO 05/07/23 05/16/23 Previous Rx's Medication Instructions Recorded aspirin 325 mg tablet 325 mg PO DAILY #14 tabs 09/10/22 meloxicam 15 mg tablet 15 mg PO DAILY #30 tabs 10/18/22 dextromethorphan-guaifenesin ER 60 1 tab PO BID #20 tabs 08/03/23 mg-1,200 mg tab,extend release,12hr (Mucinex DM) doxycycline monohydrate 100 mg 100 mg PO BID #20 tabs 08/03/23 tablet prednisone 20 mg tablet 20 mg PO BID #10 tabs 08/03/23 albuterol sulfate 90 mcg/actuation 2 inh inhalation Q4H PRN shortness 08/10/23 aerosol inhaler of breath or wheezing #8.5 grams fluticasone propionate 220 1 inh inhalation BID #12 grams 08/10/23 mcg/actuation HFA aerosol inhaler Allergies Allergy/AdvReac Type Severity Reaction Status Date / Time morphine [MORPHINE] Allergy Mild DROPS B/P Verified 05/16/23 14:22 [facility] Disclaimer: The information contained in this section may have been updated after the patient was seen, as this information can be updated by other users. Medical History Hypertension Surgical History (Reviewed 05/16/23
--- NOTE | 2023-08-10 16:08 | PC.NURSE ---
Pt ambulatory to bathroom at this time.
[2023-08-10 16:22] LABS: Basophils # 0.1 K/mm3 (0-0.2); Basophils % 0.5 % (0.1-2.0); Eosinophils # 0.2 K/mm3 (0.0-0.4); Eosinophils % 1.6 % (0.1-12.0); Hematocrit 47.4 % (42.0-52.0); Hemoglobin 15.3 g/dL (14.1-18.0); Lymphocytes % 32.2 % (10-50); Mean Corpuscular HGB Conc 32.3 g/dL (31.8-35.4); Mean Corpuscular Hemoglobin 28.9 pg (27.0-31.2); Mean Corpuscular Volume 89.7 fl (80-94); Mean Platelet Volume 8.5 fl (7.4-10.4); Monocytes # 0.7 K/mm3 (0.1-1.0); Monocytes % 7.8 % (1.7-9.3); Neutrophils # 5.4 K/mm3 (1.8-7.8); Neutrophils % 57.9 % (37.0-80.0); Platelet Count 242 K/mm3 (142-424); Red Blood Count 5.29 M/mm3 (4.60-6.20); Red Cell Distribution Width 13.5 % (11.5-17.5); White Blood Count 9.3 K/mm3 (4.8-10.8)
[2023-08-10 16:34] LABS: Alanine Aminotransferase 42 U/L (12-78); Albumin/Globulin Ratio 1.1 (1.1-1.8); Alkaline Phosphatase 91 U/L (38-126); Anion Gap 12.8 mEq/L (5-15); Aspartate Amino Transferase 37 U/L (17-59); Bilirubin,Total 0.4 mg/dl (0.2-1.3); Blood Urea Nitrogen 17 mg/dl (9-20); Calcium 9.2 mg/dl (8.4-10.2); Carbon Dioxide 27 mmol/L (22.0-30.0); Chloride 106 mmol/L (98-107); Creatinine Clearance Estimated 134 mL/min (50-200); Estimated Glomerular Filt Rate 87 ml/min (>60); GFR (African American) 105 ML/MIN (>60); Globulin 3.6 g/dL (1.3-3.2); Glucose 99 mg/dl (74-100); Potassium 3.8 mmoL/L (3.5-5.1); Sodium 142 mmol/L (136-145); Total Protein,Serum 7.6 g/dl (6.3-8.2)
[2023-08-10 16:46] LABS: NT Pro Brain Natriuretic Pep. 21.5 pg/mL (0-125)
[2023-08-10 16:47] LABS: Troponin I < 0.01 ng/ml (0.00-0.034)
--- NOTE | 2023-08-10 16:47 | PC.NURSE ---
rounded on patient, complains of dysphagia Dr. Limon notified.
[2023-08-10 16:51] LABS: Procalcitonin 0.057 ng/mL (0.0-2.0)
--- NOTE | 2023-08-10 17:21 | PC.NURSE ---
Rounded on pt. Advised his throat was very sore RN notified.
--- NOTE | 2023-08-10 17:32 | PC.NURSE ---
rounded on pt, pt reports his throat is still sore and bothering him, stated to pt I will notify MELISSA WILLAMS
== END 2023-08-10 18:21 | disposition home or self-care (01) ==
PROVIDERS: Emergency Medicine; Emergency Provider Emergency Medicine; PCP Family Medicine
DX: J40 Bronchitis, not specified as acute or chronic (principal); J44.9 Chronic obstructive pulmonary disease, unspecified; I10 Essential (primary) hypertension; E78.5 Hyperlipidemia, unspecified; F17.200 Nicotine dependence, unspecified, uncomplicated
CPT/HCPCS: 71046; 80053; 83880; 84145; 84484; 85025; 87636; 93005; 99285

== ENCOUNTER → 2023-09-04 07:32 | Outpatient (CLI) | payer BC, SELFPAY ==
--- NOTE | 2023-09-04 07:37 | CT_ITS ---
FINAL REPORT TECHNIQUE: Axial CT images of the chest were obtained without contrast. Low-dose protocol was utilized. This study was performed with techniques to keep radiation doses as low as reasonably achievable (ALARA). Individualized dose reduction techniques using automated exposure control or adjustment of mA and/or kV according to the patient's size were employed. CLINICAL HISTORY: H/O TOBACCO USE former smoker, quit 1 month ago, smoked 1/2 pk per day x 42 yrs COMPARISON: None FINDINGS: CT CHEST WITHOUT, LOW DOSE SCREENING CT Di Vol: 2.90 mGy DLP: 113.85 mGy*cm There is no mediastinal or hilar mass. No axillary mass or adenopathy. The heart size is normal. There is no pleural or pericardial effusion. The lung windows show a 2 mm nodule in the superior segment of the right lower lobe seen on image 44. There is a calcified granuloma in the right middle lobe. Mild scarring is noted. Limited images of the upper abdomen demonstrate no acute findings. Postcholecystectomy. IMPRESSION: LR Category 2: 12 month follow-up low-dose chest CT is recommended. Reviewed, Interpreted and Dictated by Cheikh Crow III, MD Transcribed by China Montes Authenticated and [facility]
== END ==
PROVIDERS: PCP Family Medicine; Visit Provider Family Medicine
DX: Z87.891 Personal history of nicotine dependence (principal); Z12.2 Encounter for screening for malignant neoplasm of respiratory organs
CPT/HCPCS: 71271

== ENCOUNTER 2024-04-11 17:58 | Observation (INO) | payer BC, SELFPAY ==
[2024-04-11 18:30] VITALS: BP 153/98; PULSE 77; RESP 20; TEMP 36.8; O2SAT 97; BMI 36.0
--- NOTE | 2024-04-11 18:39 | PC.NURSE ---
Ahmet Lundberg PA-C s/w Jordon Sauceda APRN, pt to be transferred to ER
--- NOTE | 2024-04-11 18:40 | PC.NURSE ---
PATIENT SENT TO ER PER Maria Fernanda NEVILLE APRN FOR FURTHER EVALUATION. REPORT GIVEN TO Nellie BLAKE BY Maria Fernanda NEVILLE APRN AND TO Tavo CARUSO RN BY Liz PUCKETT RN. PATIENT TRANSPORTED TO ER VIA WHEELCHAIR WITH [facility] STAFF ASSIST.
[2024-04-11 18:45] VITALS: BP 168/109; PULSE 80; RESP 17; TEMP 36.6; O2SAT 97; BMI 36.0
--- NOTE | 2024-04-11 18:45 | ED_ITS ---
Discharge Plan Disposition Patient Disposition: Still a Patient Prescriptions Prescriptions: No Action meloxicam 15 mg tablet 15 mg PO DAILY Qty: 30 2RF indomethacin 25 mg capsule 25 mg PO Patient Comments: TAKE 1 CAPSULE BY MOUTH THREE TIMES DAILY losartan 50 MG tablet 50 mg PO DAILY aspirin 325 mg tablet 325 mg PO DAILY Qty: 14 0RF Rx Instructions: Take w breakfast for 2 weeks starting 10/12 albuterol sulfate 90 mcg/actuation HFA aerosol inhaler 2 inh inhalation Q4H PRN (Reason: shortness of breath or wheezing) Qty: 8.5 0RF fluticasone propionate 220 mcg/actuation HFA aerosol inhaler 1 inh inhalation BID Qty: 12 0RF doxycycline monohydrate 100 mg tablet 100 mg PO BID Qty: 20 0RF prednisone 20 mg tablet 20 mg PO BID Qty: 10 0RF dextromethorphan-guaifenesin [Mucinex DM] 60-1,200 mg tablet extended release 12 hr 1 tab PO BID Qty: 20 0RF Referrals Follow up/Referrals: Elie Paredes MD [Primary Care Provider] - See instructions Discharge ED Provider: Jason Royal [facility] [place] HPI General Stated complaint: pain in lower left back area Mode of Arrival: Ambulatory Source of Information: Patient Limitations: No Limitations Time Seen by Provider: 04/11/24 18:40 Description of Symptoms (Recalled from Triage Doc. by RN): PATIENT C/O PAIN TO LEFT FLANK AREA THAT STARTED A WEEK AGO AND BECAME WORSE TODAY. PATIENT ALSO REPORTS SWELLING, TENDERNESS, AND FEELING TIGHT IN ABDOMEN. HEENT Symptoms (Recalled from RN notes): No Resp Symptoms (Recalled from RN notes): No Skin Symptoms (Recalled from RN notes): No MS Symptoms (Recalled from RN notes): No Functional Status (Recalled from RN notes): WNL History of Present Illness Provider Complaint: Patient states he has been having pain in his left mid back area that goes down to his lower back area States it was initially on and off but today the pain has been severe and he noticed as he was earlier as he was putting on his shirt he seen a swollen area on the side of his abdomen and his abdomen felt swollen and tight States he feels tender in his abdomen and his back and the pain has continued to get worse so he called his neighbor to bring him to the hospital Related Data Home Medications Medication Instructions Recorded Confirmed losartan 50 mg tablet 50 mg PO DAILY bp 10/10/22 06/16/23 indomethacin 25 mg capsule 25 mg PO 05/07/23 05/16/23 Previous Rx's Medication Instructions Recorded aspirin 325 mg tablet 325 mg PO DAILY #14 tabs 09/10/22 meloxicam 15 mg tablet 15 mg PO DAILY #30 tabs 10/18/22 dextromethorphan-guaifenesin ER 60 1 tab PO BID #20 tabs 08/03/23 mg-1,200 mg tab,extend release,12hr (Mucinex DM) doxycycline monohydrate 100 mg 100 mg PO BID #20 tabs 08/03/23 tablet prednisone 20 mg tablet 20 mg PO BID #10 tabs 08/03/23 albuterol sulfate 90 mcg/actuation 2 inh inhalation Q4H PRN shortness 08/10/23 aerosol inhaler of breath or wheezing #8.5 grams fluticasone propionate 220 1 inh inhalation BID #12 grams 08/10/23 mcg/actuation HFA aerosol inhaler Allergies Allergy/AdvReac Type Severity Reaction Status Date / Time morphine [MORPHINE] Allergy Mild DROPS B/P Verified 08/15/23 13:21 Worker's Comp Is this a Worker's Comp case?: No [facility] Disclaimer: The information contained in this section may have been updated after the patient was seen, as this information can be updated by other users. Medical History Hypertension Surgical History History of arthroscopy of right knee History of cholecystectomy History of surgery left bicep repair History of surgery pressure released from right ear History of surgery left thumb reparied Family History Other No significant family history Social History Smoking Status: Current every day smoker alcohol intake: never substance use type: denies use current occupational status: employed Travel in the last 8 weeks: None ROS Obtained: Yes All systems reviewed & no additional complaints except as documented and Yes Systems reviewed as appropriate & no additional complaints except as documented Constitutional Constitutional: Reports system reviewed and no additional complaints, except as documented, Reports as per HPI, Denies body ache, Denies chills, Denies fever(s) and Denies headache(s) ENT Ears, Nose, Mouth, and Throat: Reports system reviewed and no additional complaints, except as documented, Reports as per HPI and Denies headache(s) Cardiovascular Cardiovascular: Reports system reviewed and no additional complaints, except as documented and Reports as per HPI Respiratory Respiratory: Reports system reviewed and no additional complaints, except as documented and Reports as per HPI Gastrointestinal Gastrointestingal: Reports system reviewed and no additional complaints, except as documented, as per HPI, abdominal pain (reports feeling of discomfort, tightness and soreness ) and bloating; Denies coffee ground emesis, diarrhea, dyspepsia, hematemesis, hematochezia, melena, nausea or vomiting Musculoskeletal Musculoskeletal: Reports system reviewed and no additional complaints, except as documented, Reports as per HPI and Reports back pain Neurologic Neurologic: Denies headache(s) Physical Exam General General appearance: alert and in no apparent distress Respiratory Respiratory exam: Present normal lung sounds bilaterally; Absent respiratory distress or wheezes Cardiovascular Cardiovascular exam: Present regular rate, normal rhythm and normal heart sounds Abdominal Exam Abdominal exam: Present tenderness (reports feeling of tightness/swelling, tenderness left upper quad ) Back Exam Back exam: Present tenderness Back 1 view image: 2 1. reports severe pain/discomfort, denies known injury, denies loss of control of bowel or bladder Neurological Exam Neurological exam: Present alert, oriented X3 and normal gait Medical Decision Making Charles Inquiry Pt receiving controlled substance: No Charles was queried for this patient: No Vital Signs: 04/11/24 18:30 Temperature 98.2 F Temperature Source Oral Pulse Rate [Left Brachial] 77 Respiratory Rate 20 Blood Pressure [Left Arm] 153/98 H Blood Pressure Mean [Left Arm] 116 Blood Pressure Source [Left Arm] Automatic Cuff Blood Pressure Position [Left Arm] Sitting 02 Sat by Pulse Oximetry 97 Oxygen Delivery Method Room Air Medical Decision Narrative: Upon entering patient room, patient was holding abdomen, Patient reported that he has been having mid to lower back pain for about a week that became worse today and is excruciating Patient initially did not mention any pain/swelling in abdomen however upon examination patient reports noticed earlier as he was putting on his shirt, his abdomen appeared swollen and tight feeling upon exam of abdomen slightly touched left upper quad and patient flinched and pulled away when asked if he was having pain reports that he feels tender, tight and swollen in his abdomen and this just started earlier also Discussed with patient and recommended transfer to the ED for further evaluation and testing and he agreed Called Ed and patient was moved to the ED for further work up and evaluation
--- NOTE | 2024-04-11 18:46 | CT_ITS ---
PROCEDURE INFORMATION: Exam: CT Abdomen And Pelvis With Contrast Exam date and time: 04/11/2024 7:35 PM Age: 58 years old Clinical indication: Pain; Other: Left flank; Additional info: L flank pain, peritonitis on exam TECHNIQUE: Imaging protocol: Computed tomography of the abdomen and pelvis with contrast. Radiation optimization: All CT scans at this facility use at least one of these dose optimization techniques: automated exposure control; mA and/or kV adjustment per patient size (includes targeted exams where dose is matched to clinical indication); or iterative reconstruction. Contrast material: ISOVUE; Contrast volume: 75 ml; Contrast route: IV; COMPARISON: CT ABDOMEN PELVIS WO/W CON 01/16/2022 1:19 PM FINDINGS: Lungs: Benign right upper lobe calcified granuloma. Liver: Fatty infiltration. Measures 18 cm. No mass. Gallbladder and bile ducts: Surgically absent. Pancreas: Normal. No ductal dilation. Spleen: Normal. No splenomegaly. Adrenal glands: Normal. No mass. Kidneys and ureters: Normal. No hydronephrosis. Stomach and bowel: Scattered colonic diverticula without pericolonic fat stranding. Appendix: No evidence of appendicitis. Intraperitoneal space: Unremarkable. No free air. No significant fluid collection. Vasculature: Mild atherosclerotic calcification of aortoiliac arteries. Lymph nodes: Unremarkable. No enlarged lymph nodes. Urinary bladder: Unremarkable as visualized. Reproductive: Unremarkable as visualized. Bones/joints: Unremarkable. No acute fracture. Soft tissues: Unremarkable. IMPRESSION: 1. No acute findings identified. 2. Colonic diverticulosis. 3. Hepatomegaly with fatty infiltration.
--- NOTE | 2024-04-11 18:48 | HMH.EDGENADL ---
Discharge Plan Disposition Patient Disposition: Admitted Prescriptions Prescriptions: No Action meloxicam 15 mg tablet 15 mg PO DAILY Qty: 30 2RF indomethacin 25 mg capsule 25 mg PO Patient Comments: TAKE 1 CAPSULE BY MOUTH THREE TIMES DAILY losartan 50 MG tablet 50 mg PO DAILY aspirin 325 mg tablet 325 mg PO DAILY Qty: 14 0RF Rx Instructions: Take w breakfast for 2 weeks starting 09/11 albuterol sulfate 90 mcg/actuation HFA aerosol inhaler 2 inh inhalation Q4H PRN (Reason: shortness of breath or wheezing) Qty: 8.5 0RF fluticasone propionate 220 mcg/actuation HFA aerosol inhaler 1 inh inhalation BID Qty: 12 0RF doxycycline monohydrate 100 mg tablet 100 mg PO BID Qty: 20 0RF prednisone 20 mg tablet 20 mg PO BID Qty: 10 0RF dextromethorphan-guaifenesin [Mucinex DM] 60-1,200 mg tablet extended release 12 hr 1 tab PO BID Qty: 20 0RF Referrals Follow up/Referrals: Elie Paredes MD [Primary Care Provider] - See instructions Clinical Impressions Clinical Impression: Abdominal pain Instructions Patient Instructions: DI for Acute Abdominal Pain Discharge ED Provider: Jason Royal General Adult HPI General Chief complaint: Abdominal Pain Stated complaint: pain in lower left back area Time Seen by Provider: 04/11/24 18:40 Mode of Arrival: Ambulatory Source of Information: Patient Limitations: No Limitations Description of Symptoms (Recalled from ER Triage Doc. by RN): PATIENT C/O PAIN TO LEFT FLANK AREA THAT STARTED A WEEK AGO AND BECAME WORSE TODAY. PATIENT ALSO REPORTS SWELLING, TENDERNESS, AND FEELING TIGHT IN ABDOMEN. History of Present Illness HPI narrative: Patient is a 58-year-old male with past medical history of hypertension, previous cholecystectomy presents emergency department for evaluation of abdominal pain. Patient originally had left flank pain over the last week, he is a truck sales representative, however it has gotten progressively worse and he has noticed tender swelling in his abdomen causing him to present here for continued evaluation. Last bowel movement today, nonbloody, no vomiting, no dysuria. No chest pain. No other acute complaints at this time. Related Data Home Medications Medication Instructions Recorded Confirmed losartan 50 mg tablet 50 mg PO DAILY bp 09/09/22 05/16/23 indomethacin 25 mg capsule 25 mg PO 05/07/23 05/16/23 Previous Rx's Medication Instructions Recorded aspirin 325 mg tablet 325 mg PO DAILY #14 tabs 09/10/22 meloxicam 15 mg tablet 15 mg PO DAILY #30 tabs 10/18/22 dextromethorphan-guaifenesin ER 60 1 tab PO BID #20 tabs 08/03/23 mg-1,200 mg tab,extend release,12hr (Mucinex DM) doxycycline monohydrate 100 mg 100 mg PO BID #20 tabs 08/03/23 tablet prednisone 20 mg tablet 20 mg PO BID #10 tabs 08/03/23 albuterol sulfate 90 mcg/actuation 2 inh inhalation Q4H PRN shortness 08/10/23 aerosol inhaler of breath or wheezing #8.5 grams fluticasone propionate 220 1 inh inhalation BID #12 grams 08/10/23 mcg/actuation HFA aerosol inhaler Allergies Allergy/AdvReac Type Severity Reaction Status Date / Time morphine [MORPHINE] Allergy Mild DROPS B/P Verified 08/15/23 13:21 [facility] Disclaimer: The information contained in this section may have been updated after the patient was seen, as this information can be updated by other users. Medical History Hypertension Surgical History History of arthroscopy of right knee History of cholecystectomy History of surgery left bicep repair History of surgery pressure released from right ear History of surgery left thumb reparied Family History Other No significant family history Social History Smoking Status: Current every day smoker alcohol intake: never substance use type: denies use current occupational status: employed Travel in the last 8 weeks: None ROS Obtained: Yes Systems reviewed as appropriate & no additional complaints except as documented Physical Exam General General appearance: alert and in no apparent distress Head Head exam: atraumatic and normocephalic Eye Eye exam: Present PERRL and EOMI ENT ENT exam: Present mucous membranes moist Neck Neck exam: Present normal inspection Chest Chest inspection: Present normal inspection and symmetric chest wall rise Respiratory Respiratory exam: Present normal lung sounds bilaterally; Absent respiratory distress Cardiovascular Cardiovascular exam: Present regular rate and normal rhythm Abdominal Exam Abdominal exam: Present distention, tenderness (Diffuse) and guarding (Voluntary) Extremities Exam Extremities exam: Present normal inspection Neurological Exam Neurological exam: Present alert Psychiatric Psychiatric exam: Present normal affect Skin Skin exam: Present warm and dry Medical Decision Making Charles Inquiry Pt receiving controlled substance: No Vital Signs: 04/11/24 18:30 04/11/24 18:45 Temperature 98.2 F 97.8 F Temperature Source Oral Oral Pulse Rate [Left Brachial] 77 80 Respiratory Rate 20 17 Blood Pressure [Left Arm] 153/98 H 168/109 H Blood Pressure Mean [Left Arm] 116 128 Blood Pressure Source [Left Arm] Automatic Cuff Automatic Cuff Blood Pressure Position [Left Arm] Sitting 02 Sat by Pulse Oximetry 97 97 Oxygen Delivery Method Room Air Room Air Lab Data Lab Results 04/11/24 18:20: Urine Color Yellow, Urine Appearance Clear, Urine pH 6.5, Ur Specific [place] <= 1.005, Urine Protein Negative, Urine Glucose (UA) Negative, Urine Ketones Negative, Urine Blood Negative, Urine Nitrate Negative, Urine Bilirubin Negative, Urine Urobilinogen 0.2, Ur Leukocyte Esterase Trace, Urine RBC None, Urine WBC Occasional, Ur Squamous Epith Cells None, Urine Bacteria None 04/11/24 19:00: VBG pH 7.40, VBG pCO2 42.2, VBG pO2 40.2 H, VBG HCO3 25.7, VBG Total CO2 27.0, VBG O2 Saturation 77.2 H, VBG Base Excess 0.9, VBG Lactic Acid 1.8 04/11/24 19:04: WBC 10.4, RBC 5.01, Hgb 15.3, Hct 47.8, MCV 95.3 H, MCH 30.5, MCHC 32.0, RDW 14.5, Plt Count 276, MPV 9.0, Neut % (Auto) 65.4, Lymph % (Auto) 22.8, [place] % (Auto) 6.7, Eos % (Auto) 3.8, Baso % (Auto) 1.3, Neut # (Auto) 6.8, Lymph # (Auto) 2.4, [place] # (Auto) 0.7, Eos # (Auto) 0.4, Baso # (Auto) 0.1, Sodium 140, Potassium 3.7, Chloride 100, Carbon Dioxide 30, Anion Gap 13.7, BUN 13, Creatinine 0.90, Estimated Creat Clear 142, Estimated GFR 87, Est GFR ( Amer) 105, Glucose 93, Calcium 9.8, Total Bilirubin 0.6, AST 38, ALT 30, Alkaline Phosphatase 95, Total Protein 8.1, Albumin 4.3, Globulin 3.8 H, Albumin/Globulin Ratio 1.1, Lipase 134 04/11/24 19:04 04/11/24 19:04 Orders (Tests/Meds): ED MEDICATIONS Discontinued Medications Generic Name Dose Route Start Last Admin Trade Name Freq PRN Reason Stop Dose Admin Acetaminophen 1,000 mg 04/11/24 18:51 04/11/24 19:56 Acetaminophen 1,000mg/100ml Vial IV 04/11/24 18:52 1,000 mg ONCE ONE Administration Hydromorphone HCl 0.5 mg 04/11/24 18:46 04/11/24 19:55 Hydromorphone 2mg/Ml Syringe IV 04/11/24 18:47 0.5 mg ONCE ONE Administration Lactated Ringer's 1,000 mls @ 999 mls/hr 04/11/24 18:46 04/11/24 19:56 Lactated Ringer's 1000 Ml Bag IV 04/11/24 19:46 999 mls/hr .Q1H1M ONE Administration Iopamidol 75 ml 04/11/24 19:34 04/11/24 19:36 Iopamidol-370 (76%);100ml Bottle IV 04/11/24 19:35 75 ml ONCE ONE Administration Ondansetron HCl 4 mg 04/11/24 18:46 04/11/24 19:55 Ondansetron 4mg/2ml Vial IV 04/11/24 18:47 4 mg ONCE ONE Administration Sodium Chloride 10 ml 04/11/24 19:34 04/11/24 19:36 Sodium Chloride 0.9% 10ml Syr (Rad Only) IV 04/11/24 19:35 10 ml ONCE ONE Administration ORDERS Category Date Time Status CT abdomen pelvis w con Stat Cat Scan 04/11/24 18:46 Completed CBC w/Auto Diff [Complete Blood Count Auto Diff] Stat Lab 04/11/24 19:04 Completed CMP [Comprehensive Metabolic Panel] Stat Lab 04/11/24 19:04 Completed Lipase Stat Lab 04/11/24 19:04 Completed UA [Urinalysis and Microscopic] Stat Lab 04/11/24 18:20 Completed VBG [Venous Blood Gas] Stat RT 04/11/24 19:00 Completed Medical Decision Narrative: In summary patient is a 58-year-old male past medical history described above who presents emergency department for evaluation of left flank and diffuse abdominal pain. Patient is hemodynamically stable nontoxic-appearing upon arrival, severely tender throughout the abdomen and left flank, afebrile. Differential diagnosis includes intra-abdominal catastrophe, perforated hollow viscus, diverticulitis, ureterolithiasis, among others. Workup will be conducted with hematologic labs, CT of the abdomen pelvis IV contrast. Initial inventions include multimodal pain control, Zofran, crystalloid bolus. Workup reviewed by me, hematologic labs are nonactionable, compensated acid-base status, no HERMILA or critical electrolyte abnormality. Urinalysis interpreted by me and not consistent with infection. CT imaging shows no acute pathology there is hepatomegaly with fatty infiltration. Diverticulosis without diverticulitis. No fluid collection or ascites. Vasculature shows mild atherosclerosis of the aortoiliac arteries, no mention of aneurysm. Upon repeat evaluation patient has persistent tenderness. The exact etiology of his tenderness is unknown however it was felt that patient would benefit from observation as it may be that etiology is so early in the process that has not yet declared itself. Case was discussed with hospital medicine and they graciously excepted patient for admission for continued evaluation at this time. Critical Care Critical Care Time Critical Care Time: No
[2024-04-11 18:50] LABS: Microscopic, Urine URINE MICROSCOPIC (MICROSCOPIC)
[2024-04-11 18:53] LABS: Appearance,Urine CLEAR (Clear); Bilirubin,Urine Negative (Negative); Blood, Urine Negative (Negative); Color,Urine YELLOW (Yellow); Glucose,Urine (UA) Negative (Negative); Ketones,Urine Negative (Negative); Leukocyte Esterase,Urine TRACE (Negative); Nitrate,Urine Negative (Negative); PH,Urine 6.5 (5.0-8.5); Protein,Urine Negative (Negative); Specific Gravity, Urine <= 1.005 (1.005-1.030); Urobilinogen,Urine 0.2 EU/dl (0.2)
[2024-04-11 19:15] LABS: WBC,Urine Occasional #/hpf (0-3)
[2024-04-11 19:18] LABS: Basophils # 0.1 K/mm3 (0-0.2); Basophils % 1.3 % (0.1-2.0); Eosinophils # 0.4 K/mm3 (0.0-0.4); Eosinophils % 3.8 % (0.1-12.0); Hematocrit 47.8 % (42.0-52.0); Hemoglobin 15.3 g/dL (14.1-18.0); Lymphocytes # 2.4 K/mm3 (0.7-4.5); Lymphocytes % 22.8 % (10-50); Mean Corpuscular Hemoglobin 30.5 pg (27.0-31.2); Mean Corpuscular Volume 95.3 fl (80-94); Monocytes # 0.7 K/mm3 (0.1-1.0); Monocytes % 6.7 % (1.7-9.3); Neutrophils # 6.8 K/mm3 (1.8-7.8); Neutrophils % 65.4 % (37.0-80.0); Platelet Count 276 K/mm3 (142-424); Red Blood Count 5.01 M/mm3 (4.60-6.20); Red Cell Distribution Width 14.5 % (11.5-17.5); White Blood Count 10.4 K/mm3 (4.8-10.8)
--- NOTE | 2024-04-11 19:20 | PC.NURSE ---
respiratory notified of vbg order and blood in lab
[2024-04-11 19:21] LABS: Alanine Aminotransferase 30 U/L (12-78); Albumin Level 4.3 g/dl (3.5-5.0); Albumin/Globulin Ratio 1.1 (1.1-1.8); Alkaline Phosphatase 95 U/L (38-126); Anion Gap 13.7 mEq/L (5-15); Aspartate Amino Transferase 38 U/L (17-59); Bilirubin,Total 0.6 mg/dl (0.2-1.3); Blood Urea Nitrogen 13 mg/dl (9-20); Calcium 9.8 mg/dl (8.4-10.2); Carbon Dioxide 30 mmol/L (22.0-30.0); Chloride 100 mmol/L (98-107); Creatinine Clearance Estimated 142 mL/min (50-200); Estimated Glomerular Filt Rate 87 ml/min (>60); GFR (African American) 105 ML/MIN (>60); Globulin 3.8 g/dL (1.3-3.2); Glucose 93 mg/dl (74-100); Lipase 134 U/L (23-300); Potassium 3.7 mmoL/L (3.5-5.1); Sodium 140 mmol/L (136-145); Total Protein,Serum 8.1 g/dl (6.3-8.2)
[2024-04-11 19:28] LABS: Lactate Venous 1.8 mmol/L (0.4-2.0); VBG Base Excess 0.9 mmol/L (-2.4-2.3); VBG HCO3 25.7 mmol/L (23-30); VBG Oxygen Saturation 77.2 % (50-70); VBG PCO2 42.2 mmol/L (35-51); VBG PO2 40.2 mmol/L (28-40)
[2024-04-11] MEDS: SODIUM CHLORIDE 0.9% 10ML SYR (RAD ONLY) 10 ML IV (19:36)
[2024-04-11] MEDS: IOPAMIDOL-370 (76%);100ML BOTTLE 75 ML IV (19:36)
[2024-04-11] MEDS: ONDANSETRON 4MG/2ML VIAL 4 MG IV (19:55)
[2024-04-11] MEDS: HYDROMORPHONE 2MG/ML SYRINGE 0.5 MG IV (19:55)
[2024-04-11] MEDS: ACETAMINOPHEN 1,000MG/100ML VIAL 1000 MG IV (19:56)
[2024-04-11] MEDS: LACTATED RINGERS 1000ML 1,000 ML 999 ML IV (19:56)
[2024-04-11 21:42] LABS: Lactic Acid 1.3 mmol/L (0.7-2.1)
--- NOTE | 2024-04-11 21:43 | PC.NURSE ---
Notified ER attending that patient is a [facility] patient and will need to contact that group for admission. Whit contacted and speaking to Lele
--- NOTE | 2024-04-11 21:48 | PC.NURSE ---
Admitting notified for admission
[2024-04-11 21:51] VITALS: BP 164/84; PULSE 63; RESP 16; TEMP 36.5; O2SAT 96
--- NOTE | 2024-04-11 21:57 | PC.NURSE ---
report called to [facility] 210
[2024-04-11 21:58] VITALS: BP 164/84; PULSE 63; RESP 16; TEMP 36.5; O2SAT 96
--- NOTE | 2024-04-11 22:12 | PC.NURSE ---
Patient arrived to floor via wheelchair from ED at 22:08.
[2024-04-11] MEDS: LACTATED RINGERS 1000ML 1,000 ML 125 ML IV (22:15)
[2024-04-11 22:28] VITALS: BP 188/106; PULSE 61; RESP 18; TEMP 36.7; O2SAT 98; BMI 35.2
[2024-04-11 22:37] VITALS: O2SAT 98
[2024-04-12] VITALS: BP 138/96; PULSE 58; RESP 18; TEMP 36.4; O2SAT 97
[2024-04-12 04:00] VITALS: BMI 35.2
[2024-04-12 05:00] VITALS: BP 141/72; PULSE 54; RESP 17; TEMP 36.4; O2SAT 98
[2024-04-12 06:14] LABS: Basophils # 0.1 K/mm3 (0-0.2); Basophils % 0.9 % (0.1-2.0); Eosinophils # 0.4 K/mm3 (0.0-0.4); Hematocrit 44.2 % (42.0-52.0); Hemoglobin 14.4 g/dL (14.1-18.0); Lymphocytes # 2.4 K/mm3 (0.7-4.5); Lymphocytes % 32.5 % (10-50); Mean Corpuscular HGB Conc 32.7 g/dL (31.8-35.4); Mean Corpuscular Hemoglobin 31.1 pg (27.0-31.2); Mean Corpuscular Volume 95.3 fl (80-94); Mean Platelet Volume 8.7 fl (7.4-10.4); Monocytes # 0.5 K/mm3 (0.1-1.0); Monocytes % 6.8 % (1.7-9.3); Neutrophils % 54.8 % (37.0-80.0); Platelet Count 242 K/mm3 (142-424); Red Blood Count 4.63 M/mm3 (4.60-6.20); Red Cell Distribution Width 14.6 % (11.5-17.5); White Blood Count 7.3 K/mm3 (4.8-10.8)
[2024-04-12] MEDS: LACTATED RINGERS 1000ML 1,000 ML 125 ML IV (06:19)
[2024-04-12 06:28] LABS: Alanine Aminotransferase 28 U/L (12-78); Albumin Level 3.6 g/dl (3.5-5.0); Albumin/Globulin Ratio 1.1 (1.1-1.8); Alkaline Phosphatase 89 U/L (38-126); Anion Gap 10.7 mEq/L (5-15); Aspartate Amino Transferase 42 U/L (17-59); Bilirubin,Total 0.9 mg/dl (0.2-1.3); Blood Urea Nitrogen 11 mg/dl (9-20); Calcium 9.2 mg/dl (8.4-10.2); Carbon Dioxide 30 mmol/L (22.0-30.0); Chloride 103 mmol/L (98-107); Creatinine Clearance Estimated 138 mL/min (50-200); Estimated Glomerular Filt Rate 87 ml/min (>60); GFR (African American) 105 ML/MIN (>60); Globulin 3.4 g/dL (1.3-3.2); Glucose 100 mg/dl (74-100); Potassium 3.7 mmoL/L (3.5-5.1); Sodium 140 mmol/L (136-145)
[2024-04-12 07:37] VITALS: BP 132/77; PULSE 59; RESP 16; TEMP 36.6; O2SAT 90
--- NOTE | 2024-04-12 08:01 | HMH.PHAINT1 ---
Pharmacy Intervention Comments: MEDICATION RECONCILIATION COMPLETED ON PATIENT USING EXTERNAL FILL HISTORY FROM PHARMACY. -MARILU HAGEN, NOLAD
[2024-04-12 08:58] LABS: POC Glucose,Bedside 105 (70-110)
--- NOTE | 2024-04-12 09:02 | EXP.HP ---
History of Present Illness *Admission Date: 04/11/24 *Reason for visit:: Abdominal and back pain *History of present illness: Medical Decision Narrative: In summary patient is a 58-year-old male past medical history described above who presents emergency department for evaluation of left flank and diffuse abdominal pain. Patient is hemodynamically stable nontoxic-appearing upon arrival, severely tender throughout the abdomen and left flank, afebrile. Differential diagnosis includes intra-abdominal catastrophe, perforated hollow viscus, diverticulitis, ureterolithiasis, among others. Workup will be conducted with hematologic labs, CT of the abdomen pelvis IV contrast. Initial inventions include multimodal pain control, Zofran, crystalloid bolus. Workup reviewed by me, hematologic labs are nonactionable, compensated acid-base status, no HERMILA or critical electrolyte abnormality. Urinalysis interpreted by me and not consistent with infection. CT imaging shows no acute pathology there is hepatomegaly with fatty infiltration. Diverticulosis without diverticulitis. No fluid collection or ascites. Vasculature shows mild atherosclerosis of the aortoiliac arteries, no mention of aneurysm. Upon repeat evaluation patient has persistent tenderness. The exact etiology of his tenderness is unknown however it was felt that patient would benefit from observation as it may be that etiology is so early in the process that has not yet declared itself. Case was discussed with hospital medicine and they graciously excepted patient for admission for continued evaluation at this time. The above as per ER physician. Mr. Leo has a history of hypertension, tobacco use disorder, arthritis, M?ni?re's disease he has been experiencing intermittent back pain for the last 2 weeks. The pain became more severe along with abdominal discomfort. He denies having any nausea vomiting diarrhea and had a normal bowel movement yesterday a.m. He is voiding without difficulty. Due to the intractable pain he presented to the emergency room for evaluation. He denies any melena or hematochezia are hemoptysis. He has been eating normally. [facility] Disclaimer: The information contained in this section may have been updated after the patient was seen, as this information can be updated by other users. Medical History (Updated 04/12/24 @ 13:29 by Bishop Sherman MD) Tear of meniscus of right knee Primary osteoarthritis of right knee IFG (impaired fasting glucose) Vitamin D deficiency Vitamin B12 deficiency Meniere disease Hypertension Surgical History History of arthroscopy of right knee History of cholecystectomy History of surgery History of surgery History of surgery Family History (Updated 04/12/24 @ 09:09 by Marylin Farris APRN) Other Coronary artery disease Social History (Updated 04/11/24 @ 22:33 by Sharmaine Kaye RN) Smoking Status: Current every day smoker tobacco type: cigarettes packs per day: 1 smoking status start date: 1980 alcohol intake: never substance use type: denies use current occupational status: employed Travel in the last 8 weeks: None marital status: Review of Systems Constitutional Constitutional: Denies fever(s), Denies frequent falls, Denies headache(s) and Denies poor appetite Eyes Eyes: Denies change in vision ENT Ears, Nose, Mouth, and Throat: Denies dizziness, Denies headache(s), Reports nasal discharge, Denies sore throat and Denies vertigo *Cardiovascular Cardiovascular: Denies chest pain and Denies dyspnea *Respiratory Respiratory: Denies chest congestion, Denies cough and Denies dyspnea *Gastrointestinal Gastrointestinal: Reports abdominal pain, Denies belching, Reports bloating, Denies change in bowel habits, Denies change in stool character, Denies constipation, Denies diarrhea, Reports dyspepsia, Denies hematemesis, Denies hematochezia, Denies melena, Denies nausea and Denies vomiting Comments: Suprapubic pain and left quadrant pain *Genitourinary Genitourinary: Denies difficulty urinating *Musculoskeletal Musculoskeletal: Denies abnormal gait and Reports arthralgias (Right knee and left lower back pain) *Neurologic Neurologic: Denies abnormal gait, Denies abnormal speech, Denies dizziness, Denies frequent falls, Denies headache(s) and Denies vertigo Meds Home Medications and Allergies Home Medications Medication Instructions Recorded Confirmed Type losartan 100 mg tablet 100 mg PO DAILY 04/12/24 04/12/24 History New Prescriptions to Start Prescriptions: Allergies Allergy/AdvReac Type Severity Reaction Status Date / Time morphine [MORPHINE] Allergy Mild DROPS B/P Verified 08/15/23 13:21 Exam Data for Last 24 hours Vital signs and Labs for Last 24 Hours: Temp Pulse Resp BP Pulse Ox O2 Del Method 98 F 59 L 16 132/77 90 L Room Air 04/12/24 07:37 04/12/24 07:37 04/12/24 07:37 04/12/24 07:37 04/12/24 07:37 04/12/24 08:34 Laboratory Results - last 24 hr 04/11/24 18:20: Urine Color Yellow, Urine Appearance Clear, Urine pH 6.5, Ur Specific [place] <= 1.005, Urine Protein Negative, Urine Glucose (UA) Negative, Urine Ketones Negative, Urine Blood Negative, Urine Nitrate Negative, Urine Bilirubin Negative, Urine Urobilinogen 0.2, Ur Leukocyte Esterase Trace, Urine RBC None, Urine WBC Occasional, Ur Squamous Epith Cells None, Urine Bacteria None 04/11/24 19:00: VBG pH 7.40, VBG pCO2 42.2, VBG pO2 40.2 H, VBG HCO3 25.7, VBG Total CO2 27.0, VBG O2 Saturation 77.2 H, VBG Base Excess 0.9, VBG Lactic Acid 1.8 04/11/24 19:03: Lactate 1.3 04/11/24 19:04: WBC 10.4, RBC 5.01, Hgb 15.3, Hct 47.8, MCV 95.3 H, MCH 30.5, MCHC 32.0, RDW 14.5, Plt Count 276, MPV 9.0, Neut % (Auto) 65.4, Lymph % (Auto) 22.8, [place] % (Auto) 6.7, Eos % (Auto) 3.8, Baso % (Auto) 1.3, Neut # (Auto) 6.8, Lymph # (Auto) 2.4, [place] # (Auto) 0.7, Eos # (Auto) 0.4, Baso # (Auto) 0.1, Sodium 140, Potassium 3.7, Chloride 100, Carbon Dioxide 30, Anion Gap 13.7, BUN 13, Creatinine 0.90, Estimated Creat Clear 142, Estimated GFR 87, Est GFR ( Amer) 105, Glucose 93, Calcium 9.8, Total Bilirubin 0.6, AST 38, ALT 30, Alkaline Phosphatase 95, Total Protein 8.1, Albumin 4.3, Globulin 3.8 H, Albumin/Globulin Ratio 1.1, Lipase 134 04/12/24 05:52: WBC 7.3 D, RBC 4.63, Hgb 14.4, Hct 44.2, MCV 95.3 H, MCH 31.1, MCHC 32.7, RDW 14.6, Plt Count 242, MPV 8.7, Neut % (Auto) 54.8, Lymph % (Auto) 32.5, [place] % (Auto) 6.8, Eos % (Auto) 5.0, Baso % (Auto) 0.9, Neut # (Auto) 4.0, Lymph # (Auto) 2.4, [place] # (Auto) 0.5, Eos # (Auto) 0.4, Baso # (Auto) 0.1, Sodium 140, Potassium 3.7, Chloride 103, Carbon Dioxide 30, Anion Gap 10.7, BUN 11, Creatinine 0.90, Estimated Creat Clear 138, Estimated GFR 87, Est GFR ( Amer) 105, Glucose 100, Calcium 9.2, Total Bilirubin 0.9, AST 42, ALT 28, Alkaline Phosphatase 89, Total Protein 7.0, Albumin 3.6 D, Globulin 3.4 H, Albumin/Globulin Ratio 1.1 04/12/24 08:38: POC Glucose 105 I & O for Last 24 hours: Intake & Output 04/09/24 04/10/24 04/11/24 04/12/24 11:59 11:59 11:59 11:59 Intake Total 1201 / 1201 Output Total 0 / 0 Balance 1201 / 1201 Weight 237 lb 11.2 oz Constitutional Constitutional: no acute distress and obese *Routine HEENT Exam Head: Present normocephalic and atraumatic Eye: Present PERRL; Absent conjunctival icterus, scleral injection or conjunctivae pink ENT: Present mucous membranes moist and oropharynx clear *Routine Neck Exam Neck: Present supple; Absent carotid bruit, lymphadenopathy or thyromegaly *Routine Respiratory Exam Respiratory: Present CTA bilaterally (Anteriorly and posteriorly) *Routine Cardiovascular Exam Cardiovascular: Present RRR *Routine Abdominal Exam Abdominal: Present tenderness (Suprapubic and left upper quadrant discomfort and some generalized tenderness throughout), distended and obese *Routine Rectal Exam Rectal:: deferred *Routine Genitalia Exam Genitalia:: deferred *Routine Extremities Exam Extremities: Present pulses intact; Absent edema or calf tenderness Comments: Moves lower legs without difficulty Routine Back/Spine/Pelvis Exam Back/Spine: Present paraspinal tenderness (Left lumbar area) and muscle spasm (Left lumbar area); Absent vertebral tenderness Back image: 1. *Routine Skin Exam Skin: Present dry and warm *Routine Neurological Exam Neurological: Present alert and oriented X3 Assessment and Plan *Assessment and plan (1) Abdominal pain: Status: Acute Category: Medical Code(s): R10.9 - Unspecified abdominal pain (2) Tobacco abuse: Status: Acute Category: Medical Code(s): Z72.0 - Tobacco use (3) Back pain: Status: Acute Category: Medical Code(s): M54.9 - Dorsalgia, unspecified (4) Hypertension: Status: Acute Category: Medical Code(s): I10 - Essential (primary) hypertension Plan CTA of the abdomen and pelvis. Continue n.p.o. status. Pain management. Dr. Sherman entry - Saw patient, agree with above note.
--- NOTE | 2024-04-12 09:04 | CT_ITS ---
FINAL REPORT TECHNIQUE: Pre-and postcontrast images of the abdomen through the pelvis were performed by computed tomography. Extensive 3-D reconstruction images were performed. A CTA was performed. This study was performed with techniques to keep radiation doses as low as reasonably achievable (ALARA). Individualized dose reduction techniques using automated exposure control or adjustment of mA and/or kV according to the patient's size were employed. CLINICAL HISTORY: Abd pain COMPARISON: None FINDINGS: ABDOMEN: There is mild atelectasis at the lung bases. Precontrast images demonstrate no evidence of nephrolithiasis. No adrenal masses are identified. The spleen and pancreas are unremarkable. Postcholecystectomy. There is mild fatty infiltration of the liver. PELVIS: The appendix is not well-visualized but there is noted evidence of acute appendicitis. Widespread diverticulosis is noted. The urinary bladder is unremarkable. There is no significant free fluid or adenopathy. The bony pelvis is unremarkable. CTA: The abdominal aorta is proper caliber. The SMA, celiac axis, and [place]AN[place]H are patent. There is no significant stenosis or calcification. There are multiple bilateral renal arteries without evidence of renal artery stenosis. The iliac arteries are patent bilaterally without evidence of stenosis. IMPRESSION: No evidence of significant stenosis or occlusion. Mild fatty liver. Reviewed, Interpreted and Dictated by Cheikh Crow III, MD Transcribed by China Montes Authenticated and [facility]
[2024-04-12] MEDS: 0.9 % SODIUM CHLORIDE 50 ML VIAL IV (09:59)
[2024-04-12] MEDS: SODIUM CHLORIDE 0.9% 10ML SYR (RAD ONLY) 10 ML IV (09:59)
[2024-04-12] MEDS: IOPAMIDOL-370 (76%);100ML BOTTLE 100 ML IV (09:59)
[2024-04-12] MEDS: HYDROMORPHONE 2MG/ML SYRINGE 0.25 MG IV (11:42)
[2024-04-12 16:00] VITALS: BP 138/78; PULSE 67; TEMP 36.6; O2SAT 96
--- NOTE | 2024-04-12 17:09 | PC.NURSE ---
Pt is alert and oriented x4. Abdomen is tender to palpation. He's been treated w/prn pain meds x1 for abd pain. Tolerating diet. 1 BM this shift. has been at bedside. No questions or concerns at this time. Bed is locked and in the lowest position, call light is within reach.
--- NOTE | 2024-04-13 13:08 | CARE MANAGER ---
Contacted patient related to hospital discharge. He states he is doing better. He has his medication and is aware of follow up appointment. ABHILASH Sheth
--- NOTE | 2024-04-15 09:47 | EXP.DC.SUM ---
General Admission date:: 04/11/24 Discharge date: 04/12/24 HPI HPI HPI: Medical Decision Narrative: In summary patient is a 58-year-old male past medical history described above who presents emergency department for evaluation of left flank and diffuse abdominal pain. Patient is hemodynamically stable nontoxic-appearing upon arrival, severely tender throughout the abdomen and left flank, afebrile. Differential diagnosis includes intra-abdominal catastrophe, perforated hollow viscus, diverticulitis, ureterolithiasis, among others. Workup will be conducted with hematologic labs, CT of the abdomen pelvis IV contrast. Initial inventions include multimodal pain control, Zofran, crystalloid bolus. Workup reviewed by me, hematologic labs are nonactionable, compensated acid-base status, no HERMILA or critical electrolyte abnormality. Urinalysis interpreted by me and not consistent with infection. CT imaging shows no acute pathology there is hepatomegaly with fatty infiltration. Diverticulosis without diverticulitis. No fluid collection or ascites. Vasculature shows mild atherosclerosis of the aortoiliac arteries, no mention of aneurysm. Upon repeat evaluation patient has persistent tenderness. The exact etiology of his tenderness is unknown however it was felt that patient would benefit from observation as it may be that etiology is so early in the process that has not yet declared itself. Case was discussed with hospital medicine and they graciously excepted patient for admission for continued evaluation at this time. The above as per ER physician. Mr. Leo has a history of hypertension, tobacco use disorder, arthritis, M?ni?re's disease he has been experiencing intermittent back pain for the last 2 weeks. The pain became more severe along with abdominal discomfort. He denies having any nausea vomiting diarrhea and had a normal bowel movement yesterday a.m. He is voiding without difficulty. Due to the intractable pain he presented to the emergency room for evaluation. He denies any melena or hematochezia are hemoptysis. He has been eating normally. Hospital Course Hospital Course Hospital Course: After admission patient continued with n.p.o. status. Abdominal pain and back pain had improved. He had a CTA of the abdomina/ pelvis which showed no acute findings. He did well the first admission day with less pain and did have 1 loose bowel movement. He was stable to be discharged home with oral antibiotics with follow-up in the [facility] office in 2 days. Exam Data for Last 24 hours Vital signs and Labs for Last 24 Hours: Temp Pulse Resp BP Pulse Ox O2 Del Method 97.9 F 67 16 138/78 96 Room Air 04/12/24 16:00 04/12/24 16:00 04/12/24 07:37 04/12/24 16:00 04/12/24 16:00 04/12/24 16:54 I & O for Last 24 hours: Intake & Output 04/12/24 04/13/24 04/14/24 04/15/24 11:59 11:59 11:59 11:59 Intake Total 1201 / 1201 720 / 720 Output Total 0 / 0 Balance 1201 / 1201 720 / 720 Weight 237 lb 11.2 oz Narrative: Constitutional Constitutional: no acute distress and obese *Routine HEENT Exam Head: Present normocephalic and atraumatic Eye: Present PERRL; Absent conjunctival icterus, scleral injection or conjunctivae pink ENT: Present mucous membranes moist and oropharynx clear *Routine Neck Exam Neck: Present supple; Absent carotid bruit, lymphadenopathy or thyromegaly *Routine Respiratory Exam Respiratory: Present CTA bilaterally (Anteriorly and posteriorly) *Routine Cardiovascular Exam Cardiovascular: Present RRR *Routine Abdominal Exam Abdominal: Present tenderness (Suprapubic and left upper quadrant discomfort and some generalized tenderness throughout), distended and obese *Routine Rectal Exam Rectal:: deferred *Routine Genitalia Exam Genitalia:: deferred *Routine Extremities Exam Extremities: Present pulses intact; Absent edema or calf tenderness Comments: Moves lower legs without difficulty Routine Back/Spine/Pelvis Exam Back/Spine: Present paraspinal tenderness (Left lumbar area) and muscle spasm (Left lumbar area); Absent vertebral tenderness Back image: Results Data Completed and Pending Completed studies during hospitalization [Text1]: 04/11/24 18:20: Urine Color Yellow, Urine Appearance Clear, Urine pH 6.5, Ur Specific [place] <= 1.005, Urine Protein Negative, Urine Glucose (UA) Negative, Urine Ketones Negative, Urine Blood Negative, Urine Nitrate Negative, Urine Bilirubin Negative, Urine Urobilinogen 0.2, Ur Leukocyte Esterase Trace, Urine RBC None, Urine WBC Occasional, Ur Squamous Epith Cells None, Urine Bacteria None 04/11/24 19:00: VBG pH 7.40, VBG pCO2 42.2, VBG pO2 40.2 H, VBG HCO3 25.7, VBG Total CO2 27.0, VBG O2 Saturation 77.2 H, VBG Base Excess 0.9, VBG Lactic Acid 1.8 04/11/24 19:03: Lactate 1.3 04/11/24 19:04: WBC 10.4, RBC 5.01, Hgb 15.3, Hct 47.8, MCV 95.3 H, MCH 30.5, MCHC 32.0, RDW 14.5, Plt Count 276, MPV 9.0, Neut % (Auto) 65.4, Lymph % (Auto) 22.8, [place] % (Auto) 6.7, Eos % (Auto) 3.8, Baso % (Auto) 1.3, Neut # (Auto) 6.8, Lymph # (Auto) 2.4, [place] # (Auto) 0.7, Eos # (Auto) 0.4, Baso # (Auto) 0.1, Sodium 140, Potassium 3.7, Chloride 100, Carbon Dioxide 30, Anion Gap 13.7, BUN 13, Creatinine 0.90, Estimated Creat Clear 142, Estimated GFR 87, Est GFR ( Amer) 105, Glucose 93, Calcium 9.8, Total Bilirubin 0.6, AST 38, ALT 30, Alkaline Phosphatase 95, Total Protein 8.1, Albumin 4.3, Globulin 3.8 H, Albumin/Globulin Ratio 1.1, Lipase 134 04/12/24 05:52: WBC 7.3 D, RBC 4.63, Hgb 14.4, Hct 44.2, MCV 95.3 H, MCH 31.1, MCHC 32.7, RDW 14.6, Plt Count 242, MPV 8.7, Neut % (Auto) 54.8, Lymph % (Auto) 32.5, [place] % (Auto) 6.8, Eos % (Auto) 5.0, Baso % (Auto) 0.9, Neut # (Auto) 4.0, Lymph # (Auto) 2.4, [place] # (Auto) 0.5, Eos # (Auto) 0.4, Baso # (Auto) 0.1, Sodium 140, Potassium 3.7, Chloride 103, Carbon Dioxide 30, Anion Gap 10.7, BUN 11, Creatinine 0.90, Estimated Creat Clear 138, Estimated GFR 87, Est GFR ( Amer) 105, Glucose 100, Calcium 9.2, Total Bilirubin 0.9, AST 42, ALT 28, Alkaline Phosphatase 89, Total Protein 7.0, Albumin 3.6 D, Globulin 3.4 H, Albumin/Globulin Ratio 1.1 04/12/24 08:38: POC Glucose 105 04/11/2024 ABD/pelvis CT IMPRESSION: 1. No acute findings identified. 2. Colonic diverticulosis. 3. Hepatomegaly with fatty infiltration. 04/12/2024 abd/pelvis CTA FINDINGS: ABDOMEN: There is mild atelectasis at the lung bases. Precontrast images demonstrate no evidence of nephrolithiasis. No adrenal masses are identified. The spleen and pancreas are unremarkable. Postcholecystectomy. There is mild fatty infiltration of the liver. PELVIS: The appendix is not well-visualized but there is noted evidence of acute appendicitis. Widespread diverticulosis is noted. The urinary bladder is unremarkable. There is no significant free fluid or adenopathy. The bony pelvis is unremarkable. CTA: The abdominal aorta is proper caliber. The SMA, celiac axis, and [place]AN[place] are patent. There is no significant stenosis or calcification. There are multiple bilateral renal arteries without evidence of renal artery stenosis. The iliac arteries are patent bilaterally without evidence of stenosis. IMPRESSION: No evidence of significant stenosis or occlusion. Mild fatty liver. DS: Diagnosis Discharge Diagnosis (1) Abdominal pain: Status: Acute Code(s): R10.9 - Unspecified abdominal pain (2) Tobacco abuse: Status: Acute Code(s): Z72.0 - Tobacco use (3) Back pain: Status: Acute Code(s): M54.9 - Dorsalgia, unspecified (4) Hypertension: Status: Acute Code(s): I10 - Essential (primary) hypertension Meds Home Medications and Allergies Home Medications Medication Instructions Recorded Confirmed Type losartan 100 mg tablet 100 mg PO DAILY 04/12/24 04/12/24 History metronidazole 500 mg tablet 500 mg PO Q8H #30 tabs 04/12/24 Rx New Prescriptions to Start Prescriptions: metronidazole Bishop Sherman Allergies Allergy/AdvReac Type Severity Reaction Status Date / Time morphine [MORPHINE] Allergy Mild DROPS B/P Verified 08/15/23 13:21 Discharge Plan Disposition Patient Disposition: Home, Self-Care Condition: Fair Follow up Plan Follow up with: Bishop Sherman MD [Staff Physician] - 04/14/24 (please call for follow up appointment) Prescriptions/Medication Reconciliation: New metronidazole 500 mg tablet 500 mg PO Q8H Qty: 30 0RF Continued losartan 100 mg tablet 100 mg PO DAILY Problem Reconciliation Problems Reviewed?: Yes Patient Discharge Instructions ACTIVITY: Limited activity DIET: other Additional Instructions: [place] diet Patient Instructions: DI for Abdominal Pain-Adult Providers Primary Care Provider: Elie Paredes Admit Provider: Bishop Sherman Attending Provider: Bishop Sherman
== END 2024-04-12 18:29 | disposition home or self-care (01) ==
LOC: UTC 18:26 → ER 18:38 → 2ND 22:11
PROVIDERS: Nurse Practitioner Acute Care; Admitting Provider Family Medicine; Emergency Provider Emergency Medicine; PCP Family Medicine; Visit Provider Family Medicine
DX: R10.84 Generalized abdominal pain (principal); I10 Essential (primary) hypertension; F17.210 Nicotine dependence, cigarettes, uncomplicated; M54.9 Dorsalgia, unspecified
CPT/HCPCS: 36415; 74174; 74177; 80053; 81001; 82803; 82962; 83605; 83690; 85025; 99285; G0378; J0131; J2405; Q9967

== ENCOUNTER 2024-09-27 14:27 | Outpatient (CLI) | payer BC, SELFPAY ==
[2024-09-27 14:54] LABS: Basophils # 0.1 K/mm3 (0-0.2); Basophils % 0.7 % (0.1-2.0); Eosinophils # 0.4 K/mm3 (0.0-0.4); Eosinophils % 4.3 % (0.1-12.0); Hematocrit 48.2 % (42.0-52.0); Hemoglobin 16.3 g/dL (14.1-18.0); Lymphocytes % 22.8 % (10-50); Mean Corpuscular HGB Conc 33.8 g/dL (31.8-35.4); Mean Corpuscular Hemoglobin 31.6 pg (27.0-31.2); Mean Corpuscular Volume 93.5 fl (80-94); Mean Platelet Volume 8.4 fl (7.4-10.4); Monocytes # 0.6 K/mm3 (0.1-1.0); Monocytes % 6.4 % (1.7-9.3); Neutrophils # 5.9 K/mm3 (1.8-7.8); Neutrophils % 65.9 % (37.0-80.0); Platelet Count 286 K/mm3 (142-424); Red Blood Count 5.15 M/mm3 (4.60-6.20); Red Cell Distribution Width 14.1 % (11.5-17.5); White Blood Count 8.9 K/mm3 (4.8-10.8)
== END 2024-09-27 23:59 | disposition home or self-care (01) ==
LOC: LAB 14:27
PROVIDERS: PCP Family Medicine; Visit Provider Family Medicine
DX: R05.1 Acute cough (principal)
CPT/HCPCS: 85025

== ENCOUNTER 2025-01-10 07:10 | Outpatient (CLI) | payer BC, SELFPAY ==
--- NOTE | 2025-01-10 07:14 | CT_ITS ---
FINAL REPORT CLINICAL HISTORY: SCREENING current smoker 1ppd x43 years FINDINGS: CTDI vol (mGy): 2.90 DLP: 104.[address] images of the chest were obtained using the low-dose protocol for screening. There is no evidence of mediastinal or hilar mass or adenopathy. No axillary mass or adenopathy is identified. On the lung window images, there is a stable nodule in the right lower lobe measuring 2 mm on image 37 of series 3. A calcified granuloma is again noted in the right middle lobe. No new mass or nodule is identified. IMPRESSION: Stable 2 mm nodule in the right lower lobe. Lung RADS category 2. Recommend 12 month followup low-dose CT for further evaluation. Reviewed, Interpreted and Dictated by Tavo Mueller MD Transcribed by Ila Roque Authenticated and [facility]
== END 2025-01-10 23:59 | disposition home or self-care (01) ==
LOC: RAD 07:11
PROVIDERS: PCP Family Medicine; Visit Provider Family Medicine
DX: Z87.891 Personal history of nicotine dependence (principal); Z12.2 Encounter for screening for malignant neoplasm of respiratory organs
CPT/HCPCS: 71271